=== PATIENT | female | born 1930 | race Caucasian/White ===

== ENCOUNTER 2016-08-31 16:54 | Observation (INO) | payer MEDICARE, OTHER ==
[2016-08-31] MEDS ORDERED: Sodium Chloride 0.9% 1,000 ML IV ONE (17:08)
[2016-08-31] MEDS ORDERED: Sodium Chloride 0.9% 10 ML Syringe FLUSH PRN (17:08)
--- NOTE | 2016-08-31 18:12 | EDM.PDOC ---
ED HPI GENERAL MEDICAL PROBLEM - General Chief Complaint: Respiratory Problem Stated Complaint: SENT BY DR SHARMA Time Seen by Provider: 08/31/16 17:07 Source of Information: Reports: Patient History Limitations: Reports: No Limitations - History of Present Illness INITIAL COMMENTS - FREE TEXT/NARRATIVE: The patient is an 86-year-old female with a history of coronary artery disease and hypertension who presents for chest pain from clinic. Patient states that she started getting chest pain about 3 weeks ago. She's been getting occasional episodes, always while at rest. When she has an episode, the pain is substernal , sharp, it seems to come from her back and radiated around to the front of her chest and also radiates to the left arm. She states there are no provoking factors. The pain lasts minutes and then resolves. She's had multiple episodes of this chest pain, not daily, not able to say how often she's been getting it. She's also been feeling short of breath. Shortness of breath is worse with activity. No cough. No fever or recent illness. Denies lower extremity pain but states that she's had some intermittent swelling in the left lower extremity is usually worse towards the end of the day and then better in the morning. No abdominal pain, nausea, or vomiting. She was seen in clinic by Dr. Sharma. He did an EKG, chest x-ray and blood work and she was found to have an elevated d- dimer so was sent here for imaging. However her creatinine at clinic was mildly elevated at 1.46. Patient states she has no chest pain at this time. Treatments PSYCHOLOGIST PERSONNEL: Reports: Other (see below) Other Treatments PSYCHOLOGIST PERSONNEL: labs, xray chest area Pain Score (Numeric/FACES): 8 - Related Data Allergies Allergy/AdvReac Type Severity Reaction Status Date / Time contrast dye Allergy Cough Uncoded 08/31/16 17:11 Home Meds: Home Meds Aspirin 81 mg PO DAILY 08/31/16 [History] Gabapentin [Neurontin] 0 mg PO DAILY 08/31/16 [History] Latanoprost [Latanoprost] 1 dose EYEBOTH DAILY 08/31/16 [History] Metoprolol Succinate 50 mg PO DAILY 08/31/16 [History] Mirabegron [Myrbetriq] 1 tab PO DAILY 08/31/16 [History] Multivitamin [Poly-Vitamin] 1 each PO DAILY 08/31/16 [History] Omeprazole [Omeprazole] 1 tab PO DAILY 08/31/16 [History] Valsartan 320 mg PO DAILY 08/31/16 [History] atorvaSTATin Calcium [Atorvastatin Calcium] 10 mg PO DAILY 08/31/16 [History] Past Medical History HEENT History: Reports: Cataract, Glaucoma, Impaired Vision Cardiovascular History: Reports: High Cholesterol, Hypertension, [place], Other (See Below) Other Cardiovascular History: cardiolyte stress test scheduled for 09/04/16 Gastrointestinal History: Reports: GERD, Other (See Below) Genitourinary History: Reports: Renal Disease Musculoskeletal History: Reports: Arthritis, Back Pain, Chronic, Fibromyalgia Psychiatric History: Reports: Anxiety Other Dermatologic History: dry skin - Past Surgical History HEENT Surgical History: Reports: Cataract Surgery Social & Family History - Family History Family Medical History: Noncontributory - Tobacco Use Smoking Status *Q: Never Smoker Second Hand Smoke Exposure: No - Caffeine Use Caffeine Use: Reports: Coffee - Recreational Drug Use Recreational Drug Use: No ED ROS GENERAL - Review of Systems Review Of Systems: See Below Constitutional: Denies: Fever HEENT: Reports: No Symptoms Respiratory: Reports: Shortness of Breath Cardiovascular: Reports: Chest Pain Endocrine: Reports: No Symptoms GI/Abdominal: Denies: Abdominal Pain : Reports: No Symptoms Musculoskeletal: Reports: Arm Pain Skin: Reports: No Symptoms Neurological: Reports: No Symptoms ED EXAM, GENERAL - Physical Exam Exam: See Below Exam Limited By: No Limitations General Appearance: Alert, WD/WN, No Apparent Distress Eye Exam: Bilateral Eye: Normal Inspection Ears: Normal External Exam Nose: Normal Inspection Throat/Mouth: Normal Inspection, Normal Oropharynx, No Airway Compromise Head: Atraumatic, Normocephalic Neck: Normal Inspection, Supple, Non-Tender, Full Range of Motion Respiratory/Chest: No Respiratory Distress, Lungs Clear, Normal Breath Sounds, No Accessory Muscle Use, Other (Mild diffuse left chest wall tenderness, no crepitus, skin normal) Cardiovascular: Normal Peripheral Pulses, Regular Rate, Rhythm, No Murmur GI/Abdominal: Soft, Non-Tender, No Distention. No: Rebound Back Exam: Normal Inspection Neurological: Alert, Oriented, Normal Cognition, No Motor/Sensory Deficits Psychiatric: Normal Affect, Normal Mood Skin Exam: Warm, Dry, Intact, Normal Color, No Rash Course - Vital Signs Last Recorded V/S: Last Vital Signs Temp 36.7 C 08/31/16 17:04 Pulse 97 08/31/16 17:04 Resp 20 08/31/16 17:04 BP 146/67 H 08/31/16 17:04 Pulse Ox 93 L 08/31/16 17:04 - Orders/Labs/Meds Orders: Active Orders 24 hr Category Date Time Status EKG 12 Lead [EKG Documentation Completion] [RC] STAT Care 08/31/16 18:11 Active Peripheral IV Care [RC] . DIRECTED Care 08/31/16 17:08 Active Chest 1V Frontal [CR] Stat Exams 08/31/16 18:11 Ordered TROPONIN I [CHEM] Stat Lab 08/31/16 17:25 Received Sodium Chloride 0.9% [Saline Flush] Med 08/31/16 17:08 Active 10 ml FLUSH ASDIRECTED PRN Peripheral IV Insertion Adult [OM.PC] Routine Oth 08/31/16 17:08 Ordered Medication Orders Sodium Chloride (Saline Flush) 10 ml FLUSH ASDIRECTED PRN PRN Reason: Keep Vein Open Last Admin: 08/31/16 17:26 Dose: 10 ml Labs: Laboratory Tests 08/31/16 08/31/16 Range/Units 17:25 17:25 WBC 9.50 (3.98-10.04) K/mm3 RBC 3.90 L (3.98-5.22) M/mm3 Hgb 12.1 (11.2-15.7) gm/L Hct 37.7 (34.1-44.9) % MCV 96.7 H (79.4-94.8) fl MCH 31.0 (25.6-32.2) pg MCHC 32.1 L (32.2-35.5) g/dl RDW Std Deviation 45.0 (36.4-46.3) fL Plt Count 263 (182-369) K/mm3 MPV 10.3 (9.4-12.3) fl Neut % (Auto) 59.3 (34.0-71.1) % Lymph % (Auto) 30.9 (19.3-51.7) % Ward % (Auto) 7.7 (4.7-12.5) % Eos % (Auto) 1.5 (0.7-5.8) Baso % (Auto) 0.3 (0.1-1.2) % Neut # (Auto) 5.63 (1.56-6.13) K/mm3 Lymph # (Auto) 2.94 (1.18-3.74) K/mm3 Ward # (Auto) 0.73 H (0.24-0.36) K/mm3 Eos # (Auto) 0.14 (0.04-0.36) K/mm3 Baso # (Auto) 0.03 (0.01-0.08) K/mm3 Sodium 140 (136-145) mEq/L Potassium 4.1 (3.5-5.1) mEq/L Chloride 104 (98-107) mEq/L Carbon Dioxide 26 (21-32) mEq/L Anion Gap 14.1 (5-15) BUN 19 H (7-18) mg/dL Creatinine 1.5 H (0.55-1.02) mg/dL Est Cr Clr Drug Dosing 19.34 mL/min Estimated GFR (MDRD) 33 (>60) mL/min BUN/Creatinine Ratio 12.7 L (14-18) Glucose 102 (83-115) mg/dL Calcium 10.0 (8.5-10.1) mg/dL Total Bilirubin 0.4 (0.2-1.0) mg/dL AST 17 (15-37) U/L ALT 22 (14-59) U/L Alkaline Phosphatase 78 (46-116) U/L Total Protein 7.6 (6.4-8.2) g/dl Albumin 3.7 (3.4-5.0) g/dl Globulin 3.9 gm/dL Albumin/Globulin Ratio 1.0 (1-2) Meds: Medications Generic Name Dose Route Start Last Admin Trade Name Freq PRN Reason Stop Dose Admin Sodium Chloride 10 ml 08/31/16 17:08 08/31/16 17:26 Saline Flush FLUSH 10 ml ASDIRECTED PRN Administration Keep Vein Open Discontinued Medications Generic Name Dose Route Start Last Admin Trade Name Freq PRN Reason Stop Dose Admin Sodium Chloride 1,000 mls @ 1,000 mls/hr 08/31/16 17:08 08/31/16 17:26 Normal Saline IV 08/31/16 18:07 1,000 mls/hr ONETIME ONE Administration - Re-Assessments/Exams Free Text/Narrative Re-Assessment/Exam: 08/31/16 18:23 Creatinine here is 1.5. We do have a 1 L normal saline bolus in progress. Anticipate admission for serial cardiac enzymes, fluids, repeat creatinine, and CT versus VQ scan to rule out PE. EKG shows normal sinus rhythm, inferior Q waves, T-wave inversions in leads 3 and aVF, no ST elevation. No prior available for comparison. 08/31/16 18:[address] Peng who agrees to admit to obs for monitoring and further workup. Departure - Departure Time of Disposition: 18:25 Disposition: Refer to Observation Clinical Impression: Shortness of breath Chest pain Qualifiers: Chest pain type: unspecified Qualified Code(s): R07.9 - Chest pain, unspecified - Discharge Information Referrals: Andres Sharma MD [Primary Care Provider] - Forms: ED Department Discharge - My Orders Last 24 Hours: My Active Orders 08/31/16 17:08 Peripheral IV Care [RC] . DIRECTED Sodium Chloride 0.9% [Saline Flush] 10 ml FLUSH ASDIRECTED PRN Peripheral IV Insertion Adult [OM.PC] Routine 08/31/16 17:25 TROPONIN I [CHEM] Stat 08/31/16 18:11 EKG 12 Lead [EKG Documentation Completion] [RC] STAT Chest 1V Frontal [CR] Stat - Assessment/Plan Last 24 Hours: My Active Orders 08/31/16 17:08 Peripheral IV Care [RC] . DIRECTED Sodium Chloride 0.9% [Saline Flush] 10 ml FLUSH ASDIRECTED PRN Peripheral IV Insertion Adult [OM.PC] Routine 08/31/16 17:25 TROPONIN I [CHEM] Stat 08/31/16 18:11 EKG 12 Lead [EKG Documentation Completion] [RC] STAT Chest 1V Frontal [CR] Stat
[2016-08-31] MEDS ORDERED: hydrALAZINE 20 MG/ML SDV IVPUSH PRN (18:37)
[2016-08-31] MEDS ORDERED: Metoprolol Tartrate 5 MG/5 ML SDV IVPUSH PRN (18:37)
--- NOTE | 2016-08-31 18:37 | PCM.HP ---
H&P History of Present Illness - General Date of Service: 08/31/16 Admit Problem/Dx: Chest Pain and Elevated D-Dimer Source of Information: Patient, Old Records, Provider, RN Notes Reviewed History Limitations: Reports: No Limitations, Language Barrier - History of Present Illness Initial Comments - Free Text/Narative: This is a 86-year-old elderly white female with past medical history of hypertension, hyperlipidemia, history of WI, GERD, chronic kidney disease, chronic back pain, osteoarthritis, fibromyalgia, anxiety, history of renal cysts , history of hiatal hernia, and umbilical hernia who was initially seen her primary care provider's office with chest pain and was sent over to the emergency department for further evaluation. Patient reports chest pain that has been going on intermittently for about 3 weeks now. She describes her pain as pressure-like in nature that improves with aspirin and after she wraps herself up with a warm blanket. She reports no aggravating or inciting factors. Initially, her pain started at her back then proceeded to her ribs and then went into her right arm and finally into her anterior mid-sternal chest. Her pain lasted all night according to her. Patient has a history of GERD but she denies heart like in presentation. Patient carries a history of WI in the past with similar presentation. Her initial workup at her primary care office reveals an elevated d-dimer of 1.3. Her reported chest x-ray shows no acute abnormal findings. However no available images for review. Her EKG shows normal sinus rhythm with Q wave in anterior leads but no ST elevation. Her additional workup in emergency department shows a fairly unremarkable CBC. Her chemistry is remarkable for BUN of 19, and creatinine of 1.5. Troponin 1 so far is negative. The patient received initial treatment in the emergency department before she was sent to the floor for further management. She is CPR only. chest area Pain Score (Numeric/FACES): 8 left/back neck Pain Score (Numeric/FACES): 3 - Related Data Allergies/Adverse Reactions: Allergies Allergy/AdvReac Type Severity Reaction Status Date / Time contrast dye Allergy Cough Uncoded 08/31/16 17:11 Home Medications: Home Meds Aspirin 81 mg PO DAILY 08/31/16 [History] Gabapentin [Neurontin] 200 mg PO TID PRN 08/31/16 [History] Latanoprost [Latanoprost] 1 dose EYEBOTH DAILY 08/31/16 [History] Metoprolol Succinate 50 mg PO DAILY 08/31/16 [History] Mirabegron [Myrbetriq] 1 tab PO DAILY 08/31/16 [History] Multivitamin [Poly-Vitamin] 1 each PO DAILY 08/31/16 [History] Omeprazole [Omeprazole] 1 tab PO DAILY 08/31/16 [History] Valsartan 320 mg PO DAILY 08/31/16 [History] atorvaSTATin Calcium [Atorvastatin Calcium] 10 mg PO DAILY 08/31/16 [History] Hydrochlorothiazide 12.5 mg PO DAILY 09/01/16 [History] Sertraline [Zoloft] 50 mg PO DAILY 09/01/16 [History] Past Medical History HEENT History: Reports: Cataract, Glaucoma, Impaired Vision Cardiovascular History: Reports: High Cholesterol, Hypertension, [place], Other (See Below) Other Cardiovascular History: cardiolyte stress test scheduled for 09/04/16 Gastrointestinal History: Reports: GERD, Other (See Below) Genitourinary History: Reports: Renal Disease Musculoskeletal History: Reports: Arthritis, Back Pain, Chronic, Fibromyalgia Psychiatric History: Reports: Anxiety Other Dermatologic History: dry skin - Past Surgical History HEENT Surgical History: Reports: Cataract Surgery Social & Family History - Family History Family Medical History: Noncontributory - Tobacco Use Smoking Status *Q: Never Smoker Second Hand Smoke Exposure: No - Caffeine Use Caffeine Use: Reports: Coffee - Recreational Drug Use Recreational Drug Use: No H&P Review of Systems - Review of Systems: Review Of Systems: See Below General: Reports: Weakness. Denies: Fever, Chills, Malaise, Fatigue HEENT: Reports: No Symptoms Pulmonary: Reports: Shortness of Breath Cardiovascular: Reports: Chest Pain (pressure like). Denies: Dyspnea on Exertion, Edema, Lightheadedness, Syncope, Claudication, Blood Pressure Problem Gastrointestinal: Denies: Abdominal Pain, Nausea, Vomiting Genitourinary: Reports: No Symptoms Musculoskeletal: Reports: No Symptoms Skin: Denies: Cyanosis, Erythema Psychiatric: Denies: Depression, Anxiety, Hallucinations Neurological: Reports: Pre-Existing Deficit, Difficulty Walking, Gait Disturbance. Denies: Confusion, Weakness Hematologic/Lymphatic: Reports: No Symptoms Immunologic: Reports: No Symptoms Exam - Exam Exam: See Below - Vital Signs Vital Signs: Last Vital Signs Temp 36.7 C 08/31/16 17:04 Pulse 97 08/31/16 17:04 Resp 20 08/31/16 17:04 BP 146/67 H 08/31/16 17:04 Pulse Ox 93 L 08/31/16 17:04 Weight: 97.976 kg - Exam Quality Assessment: No: Supplemental Oxygen General: Alert, Oriented, Cooperative. No: Mild Distress HEENT: Conjunctiva Clear, EACs Clear, EOMI, Hearing Intact, Mucosa Moist & Mcl[place] , Nares Patent, Normal Nasal Septum, Posterior Pharynx Clear, Pupils Equal, Pupils Reactive, TMs Clear Neck: Supple, Trachea Midline, Full Range of Motion Lungs: Normal Respiratory Effort, Decreased Breath Sounds Cardiovascular: Regular Rate, Regular Rhythm, Other (chest wall tenderness on palpation) Abdomen: Normal Bowel Sounds, Soft. No: Organomegaly, Tenderness (Female) Exam: Deferred Rectal (Female) Exam: Deferred Back Exam: Normal Inspection, Decreased Range of Motion Extremities: Normal Inspection, Normal Pulses, Calf Tenderness (left leg). No: Clubbing, Cyanosis, Edema, Increased Warmth Peripheral Pulses: 2+: Posterior Tibial (L), Posterior Tibial (R), Dorsalis Pedis (L), Dorsalis Pedis (R) Skin: Warm, Dry, Intact Neuro Extensive - Mental Status: Oriented x3, Normal Cognition, Memory Intact Neuro Extensive - Motor, Sensory, Reflexes: CN II-XII Intact (fairly intact), Abnormal Gait Psychiatric: Alert, Normal Affect, Normal Mood - Patient Data Lab Results Last 24 hrs: Laboratory Results - last 24 hr 08/31/16 08/31/16 Range/Units 17:25 17:25 WBC 9.50 (3.98-10.04) K/mm3 RBC 3.90 L (3.98-5.22) M/mm3 Hgb 12.1 (11.2-15.7) gm/L Hct 37.7 (34.1-44.9) % MCV 96.7 H (79.4-94.8) fl MCH 31.0 (25.6-32.2) pg MCHC 32.1 L (32.2-35.5) g/dl RDW Std Deviation 45.0 (36.4-46.3) fL Plt Count 263 (182-369) K/mm3 MPV 10.3 (9.4-12.3) fl Neut % (Auto) 59.3 (34.0-71.1) % Lymph % (Auto) 30.9 (19.3-51.7) % Stark % (Auto) 7.7 (4.7-12.5) % Eos % (Auto) 1.5 (0.7-5.8) Baso % (Auto) 0.3 (0.1-1.2) % Neut # (Auto) 5.63 (1.56-6.13) K/mm3 Lymph # (Auto) 2.94 (1.18-3.74) K/mm3 Stark # (Auto) 0.73 H (0.24-0.36) K/mm3 Eos # (Auto) 0.14 (0.04-0.36) K/mm3 Baso # (Auto) 0.03 (0.01-0.08) K/mm3 Sodium 140 (136-145) mEq/L Potassium 4.1 (3.5-5.1) mEq/L Chloride 104 (98-107) mEq/L Carbon Dioxide 26 (21-32) mEq/L Anion Gap 14.1 (5-15) BUN 19 H (7-18) mg/dL Creatinine 1.5 H (0.55-1.02) mg/dL Est Cr Clr Drug Dosing 19.34 mL/min Estimated GFR (MDRD) 33 (>60) mL/min BUN/Creatinine Ratio 12.7 L (14-18) Glucose 102 (83-115) mg/dL Calcium 10.0 (8.5-10.1) mg/dL Total Bilirubin 0.4 (0.2-1.0) mg/dL AST 17 (15-37) U/L ALT 22 (14-59) U/L Alkaline Phosphatase 78 (46-116) U/L Total Protein 7.6 (6.4-8.2) g/dl Albumin 3.7 (3.4-5.0) g/dl Globulin 3.9 gm/dL Albumin/Globulin Ratio 1.0 (1-2) Result Diagrams: 09/01/16 05:33 09/01/16 05:33 EKG INTERPRETATION EKG Date: 08/31/16 Rhythm: NSR Comparison: NA - No Prior EKG EKG Interpretation Comments: Q wave in inferior leads, T wave inversion in III and avF *Q Meaningful Use (ADM) - VTE *Q VTE Criteria *Q: - Stroke *Q Stroke Criteria *Q: - AMI *Q AMI Criteria *Q: Problem List Initiated/Reviewed/Updated: Yes Orders Last 24hrs: Active Orders 24 hr Category Date Time Status EKG 12 Lead [EKG Documentation Completion] [RC] STAT Care 08/31/16 18:11 Active Peripheral IV Care [RC] . DIRECTED Care 08/31/16 17:08 Active Chest 1V Frontal [CR] Stat Exams 08/31/16 18:11 Ordered TROPONIN I [CHEM] Stat Lab 08/31/16 17:25 Received Sodium Chloride 0.9% [Saline Flush] Med 08/31/16 17:08 Active 10 ml FLUSH ASDIRECTED PRN Peripheral IV Insertion Adult [OM.PC] Routine Oth 08/31/16 17:08 Ordered Medication Orders Sodium Chloride (Saline Flush) 10 ml FLUSH ASDIRECTED PRN PRN Reason: Keep Vein Open Last Admin: 08/31/16 17:26 Dose: 10 ml Assessment/Plan Comment:: Assessment/Plan: Acute: Chest Pain R/o ACS - Had hx/o WI with similar presentation in the past - HEART Score is 4+. Moderate Score (4-6 points), risk of MACE of 12-16.7%: Predicts 6-week risk of major adverse cardiac event - Chest pain was pressure like in nature but not similar to GERD - No Hx/o Premature CAD in family - Risk factors: Obesity with BMI 38, HTN, HLD and hx/o WI - Non-smoker - CP protocol: Serial Troponin Q6 x2, ekg x 1 in am and Lipid panel in am - ASA, Statin, Nitro, Morphine, and BB - Cardiac stress test- scheduled for 09/04/2016 Elevated D-Dimer - 1.30 - Wells Score is 1 (moderate probability) - B/L Lower Ext U/S r/o DVT - V/Q scan in AM - Repeat level in AM - CTA is contra-indicated due to allergic reaction to contrast dye in the past Chronic: HTN HLD OAB GERD Peripheral Neuropathy Glaucoma Back Pain Fibromyalgia Stage 3 CKD/Renal Insufficiency (No baseline renal panel) Diffuse Aortic Atherosclerotic Calcification 04/19/15 (Abdominal CT scan) DJD/OA Large Cyst on superior left kidney and smaller cyst on inferior left kidney 04/19 (Abdominal CT scan) Hx/o Hiatal Hernia 04/19/15 (Abdominal CT scan) Hx/o Small Fat Containing Umbilical Hernia 04/19/15 (Abdominal CT scan) Plan: Admit to the floor w/ Telemetry Routine AM Labs Resume Home Meds B/L Duplex U/S to r/o DVT V/Q scan in AM, CTA contraindicated 2/ contrast dye allergy PT/OT consult DVT PPx: Heparin SubQ TID SW/CM for d/c planning Code Status:CPR only Called and spoke to Dr. Sharma, informing him that CTA is contraindicated due to hx/o allergic reaction
[2016-08-31] MEDS ORDERED: LORazepam 2 MG/ML MDV IV PRN (18:39)
[2016-08-31] MEDS ORDERED: Albuterol/Ipratropium 3.0-0.5 MG/3 ML Neb Soln NEB PRN (18:39)
[2016-08-31] MEDS ORDERED: Promethazine 12.5 MG in Sodium Chloride 0.9% 50 ML IV PRN (18:39)
[2016-08-31] MEDS ORDERED: Acetaminophen/HYDROcodone 325-5 MG Tab PO PRN (18:39)
[2016-08-31] MEDS ORDERED: Ondansetron 4 MG/2 ML SDV IV PRN (18:39)
[2016-08-31] MEDS ORDERED: Polyethylene Glycol 3350 Powder 17 GM Packet PO PRN (18:39)
[2016-08-31] MEDS ORDERED: Temazepam 7.5 MG Cap PO PRN (18:39)
[2016-08-31] MEDS ORDERED: Docusate Sodium 100 MG Cap PO PRN (18:39)
[2016-08-31] MEDS ORDERED: HYDROmorphone 0.5 MG/0.5 ML Syringe IVPUSH PRN (18:39)
[2016-08-31] MEDS ORDERED: Bisacodyl 5 MG Tab PO PRN (18:39)
[2016-08-31] MEDS ORDERED: Acetaminophen 325 MG Tab PO PRN (18:39)
[2016-08-31] MEDS ORDERED: Morphine 2 MG/ML Syringe IVPUSH PRN (22:29)
[2016-09-01] MEDS: Heparin Sodium 5,000 Units/ML Vial SUBCUT SCH ×2 (00:57→06:33)
[2016-09-01 02:57] VITALS: BP 119/95
[2016-09-01] MEDS ORDERED: Pantoprazole 40 MG Tab.CR PO SCH (06:00)
--- NOTE | 2016-09-01 08:25 | US ---
Bilateral lower extremity deep venous ultrasound: Duplex and color flow imaging was obtained of the right and left common femoral, proximal greater saphenous, superficial femoral, popliteal, posterior tibial and peroneal veins. Comparison: No previous venous exam. Normal phasic flow, augmentation and compression are seen. 5.5 cm popliteal cyst is noted on left side. Minimal soft tissue edema is identified within the right lower extremity. Right groin lymph node seen measuring 3.3 cm which is likely incidental. Impression: 1. No findings of deep venous thrombosis within either the right or left lower extremity. 2. Popliteal cyst on the left side. Other incidental findings. Diagnostic code #2 I agree with preliminary report issued by [facility] ([facility] preliminary report dictated on 09/01/16, 12:13 AM Central Time)
[2016-09-01] MEDS ORDERED: Aspirin 81 MG Tab.EC PO SCH (09:00)
[2016-09-01] MEDS ORDERED: Losartan 100 MG Tab PO SCH (09:00)
[2016-09-01] MEDS ORDERED: Multivitamins,Therapeutic Tab PO SCH (09:00)
[2016-09-01] MEDS ORDERED: Losartan 25 MG Tab PO SCH (09:00)
[2016-09-01] MEDS ORDERED: Simvastatin 10 MG Tab PO SCH (09:00)
[2016-09-01] MEDS ORDERED: Gabapentin 300 MG Cap PO SCH (09:00)
[2016-09-01] MEDS ORDERED: Metoprolol Succinate 50 MG Tab.ER PO SCH (09:00)
[2016-09-01] MEDS ORDERED: Mirabegron [Myrbetriq] 50 MG PO SCH (09:00)
[2016-09-01] MEDS ORDERED: Latanoprost 0.005% Ophth Soln 2.5 ML Bottle EYEBOTH SCH (09:00)
--- NOTE | 2016-09-01 10:54 | NM ---
Ventilation/perfusion lung scan Technique: 2.0 mCi of technetium 99m MAA was given intravenously. Scintigraphic imaging then obtained over the chest. 40 mCi of technetium 99m DTPA was aerosolized and patient inhaled the mixture. Continued scintigraphic imaging was performed. Findings: Mild areas of matched defects are seen within both lungs more prominent on the right side. No mismatch defect is seen. Impression: 1. Findings felt to have a low probability for pulmonary embolism. Diagnostic code #3
[2016-09-01] MEDS ORDERED: OMEPRAZOLE 40 MG CAPSULE PO SCH (11:30)
[2016-09-01] MEDS ORDERED: METOPROLOL SUCCINATE 50 MG PO SCH (11:30)
[2016-09-01] MEDS ORDERED: ATORVASTATIN 10 MG PO SCH (11:30)
[2016-09-01] MEDS ORDERED: VALSARTAN 320 MG PO SCH (11:30)
[2016-09-01] MEDS ORDERED: GABAPENTIN 100 MG CAPSULE PO SCH (11:30)
--- NOTE | 2016-09-01 13:03 | PCM.DCSUM1 ---
Discharge Summary - Hospital Course Brief History: This is a 86-year-old elderly white female with past medical history of hypertension, hyperlipidemia, history of VT, GERD, chronic kidney disease, chronic back pain, osteoarthritis, fibromyalgia, anxiety, history of renal cysts, history of hiatal hernia, and umbilical hernia who was initially seen her primary care provider's office with chest pain and was sent over to the emergency department for further evaluation. She was admitted for further evaluation. - Discharge Data Discharge Date: 09/01/16 Discharge Disposition: Home, Self-Care 01 Condition: Good - Discharge Diagnosis/Problem(s) (1) Chest pain SNOMED Code(s): 17786245 ICD Code: R07.9 - CHEST PAIN, UNSPECIFIED Status: Acute Qualifiers: Chest pain type: unspecified Qualified Code(s): R07.9 - Chest pain, unspecified (2) Shortness of breath SNOMED Code(s): 366752192 ICD Code: R06.02 - SHORTNESS OF BREATH Status: Acute (3) Elevated d-dimer SNOMED Code(s): 975113579 ICD Code: R79.89 - OTHER SPECIFIED ABNORMAL FINDINGS OF BLOOD CHEMISTRY Status: Acute - Patient Summary/Data Operative Procedure(s) Performed: None Complications: None Consults: None Hospital Course: Patient was primarily admitted for chest pain rule out ACS. She carried a history of VT and she felt this was similar in presentation. Her basic cardiac workup was unremarkable to include serial cardiac enzymes and EKGs. However she had a one-time episode of chest pressure last night that started from her back and went up to her chest, lasted about 5 minutes and after that went away on its own. As for her elevated D-dimer. Patient was ruled out for blood clot. Her duplex bilateral lower extremity ultrasound showed negative for DVT and her V/Q scan showed low probability of PE. Patient was unable to take CTA due to history of allergic reaction to contrast dye. However we proceeded to obtain CT scan without contrast and it showed no abnormalities noted except for coronary atherosclerosis. We still felt that her chest pressure comes from angina given her history of atherosclerosis disease. Therefore she was provided with sublingual nitroglycerin to take as needed for each onset of symptom. She was advised to call her primary care doctor or to come to the nearest emergency department if her symptom lingers or without resolution after taking sublingual nitroglycerin as directed. She was further advised to keep her stress test as scheduled next week. We recommend that she follows a weeder thinner after discharge. Her hospital course was otherwise uncomplicated. The rest of her chronic medical illness remained stable during his admission. She is now ready for discharge. She is completely asymptomatic. Her primary care provider was called and updated on discharge care plans. - Patient Instructions Diet: Usual Diet as Tolerated Activity: As Tolerated Driving: Do Not Drive Showering/Bathing: May Shower Notify Provider of: Increased Pain, Nausea and/or Vomiting Other/Special Instructions: - Please resume all home medications. - Call your doctor for any questions or concerns. - Keep your stress test scheduled for next week. - If no improvement wiht you symptom, we recommend you see a heart doctor - Discharge Plan Prescriptions/Med Rec: Nitroglycerin 0.4 mg SL ASDIRECTED PRN #12 tab.subl PRN Reason: Chest Pain Home Medications: Home Meds Aspirin 81 mg PO DAILY 08/31/16 [History] Gabapentin [Neurontin] 200 mg PO TID PRN 08/31/16 [History] Latanoprost 1 dose EYEBOTH DAILY 08/31/16 [History] Metoprolol Succinate 50 mg PO DAILY 08/31/16 [History] Mirabegron [Myrbetriq] 1 tab PO DAILY 08/31/16 [History] Multivitamin [Poly-Vitamin] 1 each PO DAILY 08/31/16 [History] Omeprazole 1 tab PO DAILY 08/31/16 [History] Valsartan 320 mg PO DAILY 08/31/16 [History] atorvaSTATin Calcium [Atorvastatin Calcium] 10 mg PO DAILY 08/31/16 [History] Hydrochlorothiazide 12.5 mg PO DAILY 09/01/16 [History] Nitroglycerin 0.4 mg SL ASDIRECTED PRN #12 tab.subl 09/01/16 [Rx] Sertraline [Zoloft] 50 mg PO DAILY 09/01/16 [History] Patient Handouts: Nonspecific Chest Pain, [id number] Referrals: Andres Sharma MD [Primary Care Provider] - (Please see Dr. Sharma on Sunday at 4: 15 PM on September 08, 2016 as already scheduled. ) - Discharge Summary/Plan Comment DC Time >30 min.: No Discharge Summary/Plan Comment: Discharge to Home - General Info Date of Service: 09/01/16 Admission Dx/Problem (Free Text: Chest Pain and Elevated D-Dimer Subjective Update: Follow Up Functional Status: Reports: pain controlled, tolerating diet, ambulating, urinating. Denies: new symptoms - Review of Systems General: Denies: Fever, Weakness, Fatigue, Malaise, Chills HEENT: Reports: no symptoms Pulmonary: Denies: shortness of breath, pleuritic chest pain Cardiovascular: Denies: Chest Pain, Palpitations, Dyspnea on Exertion, Orthopnea Gastrointestinal: Denies: Abdominal pain, Nausea, Vomiting Genitourinary: Reports: no symptoms Musculoskeletal: Reports: no symptoms Skin: Reports: no symptoms Neurological: Reports: Gait Disturbance. Denies: Confusion, Difficulty Walking , Weakness Psychiatric: Reports: no symptoms - Patient Data Vitals - Most Recent: Last Vital Signs Temp 36.9 C 09/01/16 03:13 Pulse 93 09/01/16 03:13 Resp 16 09/01/16 03:13 BP 119/95 H 09/01/16 03:13 Pulse Ox 90 L 09/01/16 03:13 Weight - Most Recent: 97.976 kg I&O - Last 24 hours: Intake & Output 08/31/16 09/01/16 09/01/16 22:59 06:59 14:59 Intake Total 100 90 Output Total 500 Balance -400 90 Lab Results - Last 24 hrs: Laboratory Results - last 24 hr 08/31/16 09/01/16 09/01/16 Range/Units 23:46 02:50 05:33 WBC 8.93 (3.98-10.04) K/mm3 RBC 3.86 L (3.98-5.22) M/mm3 Hgb 12.0 (11.2-15.7) gm/L Hct 37.5 (34.1-44.9) % MCV 97.2 H (79.4-94.8) fl MCH 31.1 (25.6-32.2) pg MCHC 32.0 L (32.2-35.5) g/dl RDW Std Deviation 45.1 (36.4-46.3) fL Plt Count 238 (182-369) K/mm3 MPV 10.4 (9.4-12.3) fl Neut % (Auto) 58.5 (34.0-71.1) % Lymph % (Auto) 31.2 (19.3-51.7) % [place] % (Auto) 7.3 (4.7-12.5) % Eos % (Auto) 2.5 (0.7-5.8) Baso % (Auto) 0.3 (0.1-1.2) % Neut # (Auto) 5.22 (1.56-6.13) K/mm3 Lymph # (Auto) 2.79 (1.18-3.74) K/mm3 [place] # (Auto) 0.65 H (0.24-0.36) K/mm3 Eos # (Auto) 0.22 (0.04-0.36) K/mm3 Baso # (Auto) 0.03 (0.01-0.08) K/mm3 D-Dimer, Quantitative (0.19-0.59) mg/L Sodium (136-145) mEq/L Potassium (3.5-5.1) mEq/L Chloride (98-107) mEq/L Carbon Dioxide (21-32) mEq/L Anion Gap (5-15) BUN (7-18) mg/dL Creatinine (0.55-1.02) mg/dL Est Cr Clr Drug Dosing mL/min Estimated GFR (MDRD) (>60) mL/min BUN/Creatinine Ratio (14-18) Glucose (83-115) mg/dL Calcium (8.5-10.1) mg/dL Magnesium (1.8-2.4) mg/dl CK-MB (CK-2) 0.5 (0-3.6) ng/ml Troponin I < 0.017 (0.00-0.056) ng/mL Triglycerides (<150) mg/dL Cholesterol (<200) mg/dL LDL Cholesterol Direct (<100) mg/dL HDL Cholesterol (40-59) mg/dL Urine Color Yellow (Yellow) Urine Appearance Clear (Clear) Urine pH 6.0 (5.0-8.0) Ur Specific [place] 1.020 (1.005-1.030) Urine Protein Negative (Negative) Urine Glucose (UA) Negative (Negative) Urine Ketones Negative (Negative) Urine Occult Blood Negative (Negative) Urine Nitrite Negative (Negative) Urine Bilirubin Negative (Negative) Urine Urobilinogen 0.2 (0.2-1.0) Ur Leukocyte Esterase Negative (Negative) Urine RBC Not seen (0-5) /hpf Urine WBC 0-5 (0-5) /hpf Ur Epithelial Cells 0-5 (0-5) /hpf Urine Bacteria Few (FEW) /hpf Urine Mucus Not seen (FEW) /hpf 09/01/16 09/01/16 Range/Units 05:33 05:33 WBC (3.98-10.04) K/mm3 RBC (3.98-5.22) M/mm3 Hgb (11.2-15.7) gm/L Hct (34.1-44.9) % MCV (79.4-94.8) fl MCH (25.6-32.2) pg MCHC (32.2-35.5) g/dl RDW Std Deviation (36.4-46.3) fL Plt Count (182-369) K/mm3 MPV (9.4-12.3) fl Neut % (Auto) (34.0-71.1) % Lymph % (Auto) (19.3-51.7) % [place] % (Auto) (4.7-12.5) % Eos % (Auto) (0.7-5.8) Baso % (Auto) (0.1-1.2) % Neut # (Auto) (1.56-6.13) K/mm3 Lymph # (Auto) (1.18-3.74) K/mm3 [place] # (Auto) (0.24-0.36) K/mm3 Eos # (Auto) (0.04-0.36) K/mm3 Baso # (Auto) (0.01-0.08) K/mm3 D-Dimer, Quantitative 1.31 H (0.19-0.59) mg/L Sodium 140 (136-145) mEq/L Potassium 4.1 (3.5-5.1) mEq/L Chloride 107 (98-107) mEq/L Carbon Dioxide 25 (21-32) mEq/L Anion Gap 12.1 (5-15) BUN 19 H (7-18) mg/dL Creatinine 1.4 H (0.55-1.02) mg/dL Est Cr Clr Drug Dosing 23.86 mL/min Estimated GFR (MDRD) 36 (>60) mL/min BUN/Creatinine Ratio 13.6 L (14-18) Glucose 144 H (83-115) mg/dL Calcium 9.5 (8.5-10.1) mg/dL Magnesium 2.0 (1.8-2.4) mg/dl CK-MB (CK-2) 0.6 (0-3.6) ng/ml Troponin I 0.027 (0.00-0.056) ng/mL Triglycerides 114 (<150) mg/dL Cholesterol 163 (<200) mg/dL LDL Cholesterol Direct 94 (<100) mg/dL HDL Cholesterol 50.0 (40-59) mg/dL Urine Color (Yellow) Urine Appearance (Clear) Urine pH (5.0-8.0) Ur Specific [place] (1.005-1.030) Urine Protein (Negative) Urine Glucose (UA) (Negative) Urine Ketones (Negative) Urine Occult Blood (Negative) Urine Nitrite (Negative) Urine Bilirubin (Negative) Urine Urobilinogen (0.2-1.0) Ur Leukocyte Esterase (Negative) Urine RBC (0-5) /hpf Urine WBC (0-5) /hpf Ur Epithelial Cells (0-5) /hpf Urine Bacteria (FEW) /hpf Urine Mucus (FEW) /hpf Med Orders - Current: Current Medications Acetaminophen (Tylenol) 650 mg PO Q4H PRN PRN Reason: Pain (Mild 1-3)/fever Hydrocodone Bitart/Acetaminophen ([place] 325-5 Mg) 1 tab PO Q4H PRN PRN Reason: Pain (moderate 4-6) Albuterol/Ipratropium (Duoneb 3.0-0.5 Mg/3 Ml) 3 ml NEB Q4H PRN PRN Reason: Shortness Of Breath/wheezing Aspirin (Halfprin) 81 mg PO DAILY [facility] Last Admin: 09/01/16 11:26 Dose: 81 mg Bisacodyl (Dulcolax) 5 mg PO DAILY PRN PRN Reason: Constipation Docusate Sodium (Colace) 100 mg PO BID PRN PRN Reason: Constipation Heparin Sodium (Porcine) (Heparin Sodium) 5,000 units SUBCUT Q8HR [facility] Last Admin: 09/01/16 06:33 Dose: 5,000 units Hydralazine HCl (Apresoline) 20 mg IVPUSH Q4H PRN PRN Reason: Hypertension Hydromorphone HCl (Dilaudid) 0.25 mg IVPUSH Q4H PRN PRN Reason: Pain (severe 7-10) Promethazine HCl 12.5 mg/ (Sodium Chloride) 50.5 mls @ 100 mls/hr IV Q6H PRN PRN Reason: Nausea/Vomiting Latanoprost (Xalatan 0.005% Ophth Soln) 0 ml EYEBOTH DAILY [facility] Last Admin: 09/01/16 11:27 Dose: Not Given Lorazepam (Ativan) 0.25 mg IV Q6H PRN PRN Reason: Anxiety Magnesium Sulfate (Pharmacy To Dose - Magnesium Replacement) 0 dose .XX ASDIRECTED PRN PRN Reason: rx to dose Metoprolol Tartrate (Lopressor) 5 mg IVPUSH Q4H PRN PRN Reason: Tachycardia Morphine Sulfate (Morphine) 0.5 mg IVPUSH Q4H PRN PRN Reason: Dyspnea Multivitamins (Thera) 1 each PO DAILY [facility] Last Admin: 09/01/16 11:26 Dose: 1 each Ondansetron HCl (Zofran) 4 mg IV Q6H PRN PRN Reason: Nausea/Vomiting Mirabegron [ (Myrbetriq] 50 Mg) 0 each PO DAILY [facility] Last Admin: 09/01/16 11:52 Dose: Not Given Omeprazole 40 Mg (Capsule) 0 each PO DAILY@0700 [facility] Last Admin: 09/01/16 11:30 Dose: 1 each Valsartan 320 Mg 0 each PO DAILY [facility] Last Admin: 09/01/16 11:30 Dose: 1 each Metoprolol Succinate (50 Mg Tab.Er) 0 each PO DAILY [facility] Last Admin: 09/01/16 11:29 Dose: 1 each Atorvastatin 10 Mg 0 each PO DAILY [facility] Last Admin: 09/01/16 11:27 Dose: 1 each Gabapentin 100 Mg (Capsule) 0 each PO DAILY [facility] Last Admin: 09/01/16 11:28 Dose: 1 each Polyethylene Glycol (Miralax) 17 gm PO DAILY PRN PRN Reason: Constipation Potassium Chloride (Pharmacy To Dose - Potassium Replacement) 0 dose .XX ASDIRECTED PRN PRN Reason: RX TO DOSE Senna/Docusate Sodium (Senna Plus) 1 tab PO BID PRN PRN Reason: Constipation Sodium Chloride (Saline Flush) 10 ml FLUSH ASDIRECTED PRN PRN Reason: Keep Vein Open Last Admin: 08/31/16 17:26 Dose: 10 ml Temazepam (Restoril) 7.5 mg PO BEDTIME PRN PRN Reason: Sleep Discontinued Medications Gabapentin (Neurontin) 300 mg PO DAILY [facility] Last Admin: 09/01/16 11:52 Dose: Not Given Sodium Chloride (Normal Saline) 1,000 mls @ 1,000 mls/hr IV ONETIME ONE Stop: 08/31/16 18:07 Last Admin: 08/31/16 17:26 Dose: 1,000 mls/hr Losartan Potassium (Cozaar) 100 mg PO DAILY [facility] Last Admin: 09/01/16 11:52 Dose: Not Given Losartan Potassium (Cozaar) 50 mg PO DAILY [facility] Last Admin: 09/01/16 11:52 Dose: Not Given Metoprolol Succinate (Toprol Xl) 50 mg PO DAILY [facility] Last Admin: 09/01/16 11:53 Dose: Not Given Pantoprazole Sodium (Protonix) 40 mg PO ACBREAKFAST [facility] Last Admin: 09/01/16 06:33 Dose: 40 mg Simvastatin (Zocor) 10 mg PO DAILY [facility] Last Admin: 09/01/16 11:53 Dose: Not Given - Exam General: Reports: alert, oriented, cooperative, no acute distress HEENT: Reports: Pupils equal, Pupils reactive, EOMI, Mucous membr. moist/pink Neck: Reports: supple, trachea midline Lungs: Reports: Clear to auscultation, Normal respiratory effort Cardiovascular: Reports: Regular Rate, Regular Rhythm Abdomen: Reports: bowel sounds present, soft, no tenderness, no distension (Female) Exam: Deferred Rectal (Female) Exam: Deferred Back Exam: Reports: Normal Inspection, Decreased Range of Motion Extremities: Reports: no edema, normal pulses, no tenderness/swelling, no clubbing, no cyanosis, no calf tenderness, calf tenderness Skin: Reports: warm, dry, intact Neurological: Reports: no new focal deficit Psy/Mental Status: Reports: alert, normal affect, normal mood *Q Meaningful Use (DIS) - VTE *Q VTE Criteria *Q: - Stroke *Q Stroke Criteria *Q: - AMI *Q AMI Criteria *Q:
--- NOTE | 2016-09-01 13:37 | CT ---
CT chest Technique: Multiple axial sections were obtained through the chest. Intravenous contrast was not utilized. Comparison: Previous chest x-ray of 08/31/16. Findings: Mediastinum and hilar regions show no adenopathy or mass. Large cyst is noted off the superior left kidney measuring 10.7 cm. Coronary artery calcification is seen. Atherosclerotic calcification is seen within the thoracic aorta and branch vessels. Lungs are clear. No pleural effusions are seen. No pneumothorax is seen. Bone window settings were reviewed which show scattered degenerative change within the spine. Impression: 1. Incidental findings as described above. Nothing acute is identified on noncontrast CT study of the chest. Diagnostic code #2
== END 2016-09-01 14:30 | disposition home or self-care (01) ==
LOC: JD.ED 16:54 → JD.MS 19:40
PROVIDERS: ADMIT Internal Medicine; ATTEND Internal Medicine
DX: R07.9 Chest pain, unspecified (principal); R06.02 Shortness of breath; R79.89 Other specified abnormal findings of blood chemistry; I12.9 Hypertensive chronic kidney disease with stage 1 through stage 4 chronic kidney disease, or unspecified chronic kidney disease; N18.3 Chronic kidney disease, stage 3 (moderate); E78.5 Hyperlipidemia, unspecified; K21.9 Gastro-esophageal reflux disease without esophagitis; G62.9 Polyneuropathy, unspecified; H40.9 Unspecified glaucoma; M54.9 Dorsalgia, unspecified; M79.7 Fibromyalgia; I70.0 Atherosclerosis of aorta; E78.00 Pure hypercholesterolemia, unspecified; I25.2 Old myocardial infarction; M19.90 Unspecified osteoarthritis, unspecified site; G89.29 Other chronic pain; F41.9 Anxiety disorder, unspecified; E66.9 Obesity, unspecified; Z79.82 Long term (current) use of aspirin; Z79.899 Other long term (current) drug therapy; Z98.890 Other specified postprocedural states; Z91.041 Radiographic dye allergy status; Z68.38 Body mass index [BMI] 38.0-38.9, adult
CPT/HCPCS: 36415; 71250; 78582; 80048; 80053; 80061; 81001; 82553; 83735; 84484; 85025; 85379; 87086; 93005; 93970; 96360; 97162; 97165; 99285; A9270; A9540; J1644; J7040; J7050; 96372; 99217; 99219; 99284; G0378

== ENCOUNTER 2017-02-10 08:40 | Emergency (ER) | payer MEDICARE, OTHER ==
[2017-02-10 08:55] VITALS: BP 167/94
--- NOTE | 2017-02-10 09:03 | EDM.PDOC ---
ED HPI GENERAL MEDICAL PROBLEM - General Chief Complaint: Gastrointestinal Problem Stated Complaint: CONSTIPATION/ABDOMINAL PAIN Time Seen by Provider: 02/10/17 09:03 - History of Present Illness INITIAL COMMENTS - FREE TEXT/NARRATIVE: 86-year-old female presents emergency room with abdominal bloating and constipation. This is been going on the last couple of days prior to this the patient had some nausea and vomiting over this last weekend she attributed to eating a bad bowl of soup she did not have any diarrhea with this and this resolved her diet has been normal for the last several days yesterday she noted she was getting more bloated and felt as though she could not defecate. She worked with this through the evening without much success. Patient denies any other symptoms at this time Rectal Pain Score (Numeric/FACES): 10 - Related Data Allergies Allergy/AdvReac Type Severity Reaction Status Date / Time contrast dye Allergy Cough Uncoded 02/10/17 08:51 Home Meds: Home Meds Aspirin 81 mg PO DAILY 08/31/16 [History] Gabapentin [Neurontin] 200 mg PO TID PRN 08/31/16 [History] Latanoprost 1 dose EYEBOTH DAILY 08/31/16 [History] Metoprolol Succinate 50 mg PO DAILY 08/31/16 [History] Mirabegron [Myrbetriq] 1 tab PO DAILY 08/31/16 [History] Multivitamin [Poly-Vitamin] 1 each PO DAILY 08/31/16 [History] Omeprazole 1 tab PO DAILY 08/31/16 [History] Valsartan 320 mg PO DAILY 08/31/16 [History] atorvaSTATin Calcium [Atorvastatin Calcium] 10 mg PO DAILY 08/31/16 [History] Hydrochlorothiazide 12.5 mg PO DAILY 09/01/16 [History] Nitroglycerin 0.4 mg SL ASDIRECTED PRN #12 tab.subl 09/01/16 [Rx] Sertraline [Zoloft] 50 mg PO DAILY 09/01/16 [History] Lactulose 20 gm PO Q24H #600 ml 02/10/17 [Rx] Past Medical History HEENT History: Reports: Cataract, Glaucoma, Impaired Vision Cardiovascular History: Reports: High Cholesterol, Hypertension, [place], Other (See Below) Other Cardiovascular History: cardiolyte stress test scheduled for 09/04/16 Gastrointestinal History: Reports: GERD, Other (See Below) Genitourinary History: Reports: Renal Disease SPRING TIER History: Reports: Musculoskeletal History: Reports: Arthritis, Back Pain, Chronic, Fibromyalgia Psychiatric History: Reports: Anxiety Endocrine/Metabolic History: Reports: Obesity/BMI 30+ Other Dermatologic History: dry skin - Past Surgical History HEENT Surgical History: Reports: Cataract Surgery Social & Family History - Family History Family Medical History: Noncontributory - Tobacco Use Smoking Status *Q: Never Smoker Second Hand Smoke Exposure: No - Caffeine Use Caffeine Use: Reports: Coffee Other Caffeine Use: 2 cups a day - Recreational Drug Use Recreational Drug Use: No ED ROS GENERAL - Review of Systems Review Of Systems: See Below Constitutional: Reports: No Symptoms Respiratory: Reports: No Symptoms Cardiovascular: Reports: No Symptoms GI/Abdominal: Reports: Constipation, Other (She has some bloating). Denies: Diarrhea ED EXAM, GI/ABD - Physical Exam Exam: See Below Exam Limited By: No Limitations General Appearance: Alert, No Apparent Distress Head: Atraumatic, Normocephalic Neck: Normal Inspection, Supple, Non-Tender, Full Range of Motion Respiratory/Chest: No Respiratory Distress, Lungs Clear, Normal Breath Sounds Cardiovascular: Regular Rate, Rhythm, No Murmur, Other (Trace edema) Rectal (Female) Exam: Heme - Stool, Other (She has an external hemorrhoid a firm large ball of stool is noted in the rectal vault. Stool color is brownish with a slight red discoloration Hemoccult is negative) Back Exam: Normal Inspection. No: CVA Tenderness (L), CVA Tenderness (R) Neurological: Alert, Oriented, Normal Cognition Course - Vital Signs Last Recorded V/S: Last Vital Signs Temp 36.8 C 02/10/17 08:51 Pulse 86 02/10/17 08:51 Resp 20 02/10/17 08:51 BP 167/94 H 02/10/17 08:51 Pulse Ox 96 02/10/17 08:51 - Orders/Labs/Meds Orders: Active Orders 24 hr Category Date Time Status Enema [RC] ASDIRECTED Care 02/10/17 11:29 Active Abdomen 2V AP Flat Upright [CR] Stat Exams 02/10/17 10:14 Taken Meds: Medications Discontinued Medications Generic Name Dose Route Start Last Admin Trade Name Freq PRN Reason Stop Dose Admin Lidocaine HCl 10 ml 02/10/17 11:49 12/09/17 13:33 Xylocaine 2% Jelly MUCMEM 02/10/17 11:50 10 ml ONETIME ONE Administration - Re-Assessments/Exams Free Text/Narrative Re-Assessment/Exam: 02/10/17 11:38 KUB and upright are not suggestive of bowel obstruction she has a fair amount of stool seen in the rectal area large accumulation in the right colon scattered throughout. 02/10/17 13:51 Patient was given a soapsuds enema she had a hard time keeping this in nursing was able to digitally remove a medium bolus of stool from the rectal vault the patient had some improvement after this bloating improved and her discomforts improved. At this point she wants to go home. We will start her on lactulose. Departure - Departure Time of Disposition: 13:53 Disposition: Home, Self-Care 01 Clinical Impression: Constipation - Discharge Information Prescriptions: Lactulose 20 gm PO Q24H #600 ml Referrals: Andres Sharma MD [Primary Care Provider] - Forms: ED Department Discharge Additional Instructions: Return to emergency room with any questions problems or worsening symptoms. Push plenty of fluids. You been started on lactulose this is to help with the constipation take 2 tablespoons daily. Follow-up with your regular doctor in 1 week if needed. - My Orders Last 24 Hours: My Active Orders 02/10/17 10:14 Abdomen 2V AP Flat Upright [CR] Stat 02/10/17 11:29 Enema [RC] ASDIRECTED - Assessment/Plan Last 24 Hours: My Active Orders 02/10/17 10:14 Abdomen 2V AP Flat Upright [CR] Stat 02/10/17 11:29 Enema [RC] ASDIRECTED
[2017-02-10] MEDS ORDERED: Lidocaine 2% Jelly 10 ML Urojet MUCMEM ONE (11:49)
--- NOTE | 2017-02-10 16:07 | CR ---
Abdomen: Supine and upright views of the abdomen and pelvis were obtained. Comparison: No prior abdominal x-ray, previous abdominal and pelvic CT exam of 04/19/15 is available. Scattered degenerative change is noted within the spine with mild scoliosis. Joint space narrowing is also noted within both hips. Bowel gas pattern is normal. No free air is identified. No soft tissue abnormality is appreciated. Impression: 1. Incidental findings. Nothing acute is identified on two-view abdominal x-ray. Diagnostic code #2
== END 2017-02-10 14:20 | disposition home or self-care (01) ==
LOC: JD.ED 08:40
DX: K59.00 Constipation, unspecified (principal); E78.00 Pure hypercholesterolemia, unspecified; I10 Essential (primary) hypertension; Z88.6 Allergy status to analgesic agent; Z88.8 Allergy status to other drugs, medicaments and biological substances
CPT/HCPCS: 74020; 74020-26; 99283; 99284

== ENCOUNTER 2017-06-24 16:59 | Emergency (ER) | payer MEDICARE, OTHER ==
[2017-06-24 17:17] VITALS: BP 137/81
--- NOTE | 2017-06-24 17:59 | EDM.PDOC ---
ED HPI GENERAL MEDICAL PROBLEM - General Chief Complaint: ENT Problem Stated Complaint: NOSE INJURY Time Seen by Provider: 06/24/17 17:45 Source of Information: Reports: Patient History Limitations: Reports: No Limitations - History of Present Illness INITIAL COMMENTS - FREE TEXT/NARRATIVE: Patient is a 87-year-old female presents to the ED complaining of epistaxis. Patient states she chronically has bleeding to the nares on a daily basis. Has been utilizing a product called bleeding ease prescribed by her ENT specialist. She is on aspirin. Denies any anticoagulants. She is being evaluated in the ED since one of the bleed ease products is stuck in her left nares. Home nurse attempted to remove it but was unable to see it. She has no further bleeding. Nose Pain Score (Numeric/FACES): 5 - Related Data Allergies Allergy/AdvReac Type Severity Reaction Status Date / Time contrast dye Allergy Cough Uncoded 02/10/17 08:51 Home Meds: Home Meds Aspirin 81 mg PO DAILY 08/31/16 [History] Gabapentin [Neurontin] 200 mg PO TID PRN 08/31/16 [History] Latanoprost 1 dose EYEBOTH DAILY 08/31/16 [History] Metoprolol Succinate 50 mg PO DAILY 08/31/16 [History] Mirabegron [Myrbetriq] 1 tab PO DAILY 08/31/16 [History] Multivitamin [Poly-Vitamin] 1 each PO DAILY 08/31/16 [History] Omeprazole 1 tab PO DAILY 08/31/16 [History] Valsartan 320 mg PO DAILY 08/31/16 [History] atorvaSTATin Calcium [Atorvastatin Calcium] 10 mg PO DAILY 08/31/16 [History] Hydrochlorothiazide 12.5 mg PO DAILY 09/01/16 [History] Nitroglycerin 0.4 mg SL ASDIRECTED PRN #12 tab.subl 09/01/16 [Rx] Sertraline [Zoloft] 50 mg PO DAILY 09/01/16 [History] Lactulose 20 gm PO Q24H #600 ml 02/10/17 [Rx] Past Medical History HEENT History: Reports: Cataract, Glaucoma, Impaired Vision Cardiovascular History: Reports: High Cholesterol, Hypertension, [place], Other (See Below) Other Cardiovascular History: cardiolyte stress test scheduled for 09/04/16 Gastrointestinal History: Reports: GERD, Other (See Below) Genitourinary History: Reports: Renal Disease 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: Musculoskeletal History: Reports: Arthritis, Back Pain, Chronic, Fibromyalgia Psychiatric History: Reports: Anxiety Endocrine/Metabolic History: Reports: Obesity/BMI 30+ Other Dermatologic History: dry skin - Past Surgical History HEENT Surgical History: Reports: Cataract Surgery Social & Family History - Family History Family Medical History: Noncontributory - Tobacco Use Smoking Status *Q: Never Smoker Second Hand Smoke Exposure: No - Caffeine Use Caffeine Use: Reports: Coffee Other Caffeine Use: 2 cups a day - Recreational Drug Use Recreational Drug Use: No ED ROS ENT - Review of Systems Review Of Systems: ROS reveals no pertinent complaints other than HPI. ED EXAM, ENT - Physical Exam Exam: See Below Exam Limited By: No Limitations General Appearance: Alert, WD/WN, No Apparent Distress Ears: Hearing Grossly Normal Nose: Normal Inspection, Normal Mucousa, No Blood, Other (Small cotton ball like product located to the nare. Removed with alligator forceps with no issues. It was fully intact. No additional bleeding noted. ). No: Active Bleeding, Dried Blood Mouth/Throat: Normal Oropharynx Neck: Normal Inspection, Supple Respiratory/Chest: No Respiratory Distress, No Accessory Muscle Use Neurological: Alert, Oriented, CN II-XII Intact, Normal Cognition, No Motor/ Sensory Deficits Psychiatric: Normal Affect, Normal Mood Skin: Warm, Dry, Intact Course - Vital Signs Last Recorded V/S: Last Vital Signs Temp 98.5 F 06/24/17 17:14 Pulse 96 06/24/17 17:14 Resp 20 06/24/17 17:14 BP 137/81 06/24/17 17:14 Pulse Ox 94 L 06/24/17 17:14 - Re-Assessments/Exams Free Text/Narrative Re-Assessment/Exam: Removed bleed ease strip from the left nare. No bleeding present. Heavy coat of bacitracin applied to both nares. Discharge instructions as documented. Departure - Departure Time of Disposition: 17:55 Disposition: Home, Self-Care 01 Clinical Impression: Epistaxis - Discharge Information Instructions: Nasal Foreign Body, [id number], Nosebleed, Adult, [id number] Referrals: Andres Sharma MD [Primary Care Provider] - Forms: ED Department Discharge Additional Instructions: If bleeding occurs: utilize afrin 1 to 2 spray's to affected nare. Apply bleed ease strip to the affected nare with gentle pressure for 20 minutes. Suggest every night prior to bed placing heavy coat of vaseline to the nares to reduce any dryness and irritation. Please followup with PCP as needed. Return to the E.D. if you develop a nose bleed not relieved with the above therapies.
== END 2017-06-24 18:06 | disposition home or self-care (01) ==
LOC: JD.ED 16:59
DX: R04.0 Epistaxis (principal); E78.00 Pure hypercholesterolemia, unspecified; I10 Essential (primary) hypertension; I25.2 Old myocardial infarction; Z91.041 Radiographic dye allergy status; Z79.82 Long term (current) use of aspirin; Z79.899 Other long term (current) drug therapy
CPT/HCPCS: 30300; 99283-25

== ENCOUNTER 2017-10-26 23:18 | Emergency (ER) | payer MEDICARE, OTHER ==
[2017-10-26 23:36] VITALS: BP 160/75
--- NOTE | 2017-10-27 00:19 | EDM.PDOC ---
ED HPI GENERAL MEDICAL PROBLEM - General Chief Complaint: Lower Extremity Injury/Pain Stated Complaint: FALL Time Seen by Provider: 10/26/17 23:30 Source of Information: Reports: Patient History Limitations: Reports: No Limitations - History of Present Illness INITIAL COMMENTS - FREE TEXT/NARRATIVE: This is a 87-year-old female. Tonight she went to the bathroom was going to sit down on a stool when her left leg slid out in front of her and she fell to the right striking the edge of the bathtub. She did not hit her head and she had no loss of consciousness. She complains of pain in her right hip area slightly in her right flank and her right ribs around to the front and slightly in her neck on the right side. She states she did not hit her head and she did not hit her neck but they are getting sore. She does have a bruise noted along the iliac crest on the right. She was able to get up and stand afterwards but because of the pain she comes to the ER for evaluation. She denies any other acute symptoms at this time. 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: Reports: Acetaminophen Right Hip Pain Score (Numeric/FACES): 8 - Related Data Allergies Allergy/AdvReac Type Severity Reaction Status Date / Time contrast dye Allergy Cough Uncoded 10/26/17 23:31 Home Meds: Home Meds Aspirin 81 mg PO DAILY 08/31/16 [History] Gabapentin [Neurontin] 200 mg PO TID PRN 08/31/16 [History] Latanoprost 1 dose EYEBOTH DAILY 08/31/16 [History] Metoprolol Succinate 50 mg PO DAILY 08/31/16 [History] Mirabegron [Myrbetriq] 1 tab PO DAILY 08/31/16 [History] Multivitamin [Poly-Vitamin] 1 each PO DAILY 08/31/16 [History] Omeprazole 1 tab PO DAILY 08/31/16 [History] Valsartan 320 mg PO DAILY 08/31/16 [History] atorvaSTATin Calcium [Atorvastatin Calcium] 10 mg PO DAILY 08/31/16 [History] Nitroglycerin 0.4 mg SL ASDIRECTED PRN #12 tab.subl 09/01/16 [Rx] Sertraline [Zoloft] 50 mg PO DAILY 09/01/16 [History] hydroCHLOROthiazide [Hydrochlorothiazide] 12.5 mg PO DAILY 09/01/16 [History] Lactulose 20 gm PO Q24H #600 ml 02/10/17 [Rx] Furosemide [Lasix] 20 mg PO DAILY 10/26/17 [History] Isosorbide Mononitrate [Imdur] 30 mg PO DAILY 10/26/17 [History] Losartan [Cozaar] 50 mg PO DAILY 10/26/17 [History] Hydrocodone/Acetaminophen [Hydrocodon-Acetaminoph 2.5-325] 1 each PO Q6H PRN # 15 tablet 10/27/17 [Rx] Past Medical History HEENT History: Reports: Cataract, Glaucoma, Impaired Vision Cardiovascular History: Reports: High Cholesterol, Hypertension, [place], Other (See Below) Other Cardiovascular History: cardiolyte stress test scheduled for 09/04/16 Gastrointestinal History: Reports: GERD, Other (See Below) Genitourinary History: Reports: Renal Disease 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: Musculoskeletal History: Reports: Arthritis, Back Pain, Chronic, Fibromyalgia Psychiatric History: Reports: Anxiety Endocrine/Metabolic History: Reports: Obesity/BMI 30+ Other Dermatologic History: dry skin - Past Surgical History HEENT Surgical History: Reports: Cataract Surgery Social & Family History - Family History Family Medical History: Noncontributory - Caffeine Use Caffeine Use: Reports: Coffee Other Caffeine Use: 2 cups a day Review of Systems - Review of Systems Review Of Systems: See Below Constitutional: Denies: Chills, Fever Eyes: Reports: No Symptoms Ears: Reports: No Symptoms Nose: Reports: No Symptoms Mouth/Throat: Reports: No Symptoms Respiratory: Denies: Shortness of Breath, Cough Cardiovascular: Reports: No Symptoms GI/Abdominal: Reports: Other (Morbidly obese) Genitourinary: Reports: No Symptoms Musculoskeletal: Reports: Neck Pain, Other (Rib pain and right hip pain) Skin: Reports: Other (As per history of present illness) Neurological: Denies: Headache, Numbness, Syncope, Tingling Psychiatric: Reports: No Symptoms ED EXAM, GENERAL - Physical Exam Exam: See Below Exam Limited By: No Limitations General Appearance: Alert, WD/WN, No Apparent Distress Eye Exam: Bilateral Eye: Normal Inspection Ears: Normal External Exam Nose: Normal Inspection Throat/Mouth: Normal Inspection, Normal Lips, Normal Voice, No Airway Compromise Head: Atraumatic, Normocephalic Neck: Supple, Other (Mild soreness in the right paraspinal muscles but she has good rotation of the neck and head noted) Respiratory/Chest: No Respiratory Distress, Lungs Clear, Normal Breath Sounds, Other (He complains of soreness of her right ribs around to the front but I do not see any obvious bruising of her rib cage or her back, there is no crepitus noted there is no single rib seems to be tender on palpation) Cardiovascular: Regular Rate, Rhythm, No Murmur GI/Abdominal: Soft, Other (Morbidly obese, she denies any abdominal tenderness at this time) Back Exam: Normal Inspection, Decreased Range of Motion, Other (The patient sat up in the bed for me no complaints of thoracic or lumbar tenderness or pain when she was sitting up). No: Paraspinal Tenderness, Vertebral Tenderness Extremities: Normal Inspection, Pedal Edema, Other (When I look at her right iliac crest she has a bruise noted about the size of her palm right over the iliac crest, when I palpate her prominence of her hip she really doesn't seem to have a lot of tenderness there its over her pelvis seems to be tender, she denies any right knee ankle or foot pain) Neurological: Alert, Oriented Psychiatric: Normal Affect, Normal Mood Course - Vital Signs Last Recorded V/S: Last Vital Signs Temp 98.5 F 10/26/17 23:31 Pulse 80 10/26/17 23:31 Resp 18 10/26/17 23:31 BP 160/75 H 10/26/17 23:31 Pulse Ox 95 10/26/17 23:31 - Orders/Labs/Meds Orders: Active Orders 24 hr Category Date Time Status Hip Min 2V or 3V Rt [CR] Stat Exams 10/27/17 00:13 Taken Pelvis 1V or 2V [CR] Stat Exams 10/27/17 00:13 Taken Ribs 2V w Chest Rt [CR] Stat Exams 10/27/17 00:13 Taken Meds: Medications Discontinued Medications Generic Name Dose Route Start Last Admin Trade Name Freq PRN Reason Stop Dose Admin Hydrocodone Bitart/Acetaminophen 0.5 tab 10/27/17 01:28 10/27/17 01:33 Horatio 325-5 Mg PO 10/27/17 01:29 0.5 tab ONETIME ONE Administration - Radiology Interpretation Free Text/Narrative:: Right rib x-rays do not show any acute fractures that I can see Pelvis films do not show any acute fractures Right hip does not suggest any acute fractures - Re-Assessments/Exams Free Text/Narrative Re-Assessment/Exam: 10/27/17 01:14 I spoke to the patient at length regarding her x-rays. I explained to her that she has bruises and strains from falling but there is no reason why she can't get up and move. I will provide her with a very low dose of hydrocodone to help with her soreness. I am not going to give her enough to get her hooked on the medication as she describes it. She is very much against wanting to get up or do much for herself and she was hoping to be admitted to the hospital but I explained to her they don't admit people to the hospital for bruises. She'll be going back to [facility]. Departure - Departure Time of Disposition: 01:15 Disposition: Home, Self-Care 01 Condition: Fair Clinical Impression: Contusion of rib on right side Qualifiers: Encounter type: initial encounter Qualified Code(s): S20.211A - Contusion of right front wall of thorax, initial encounter Contusion of pelvis Qualifiers: Encounter type: initial encounter Qualified Code(s): S30.0XXA - Contusion of lower back and pelvis, initial encounter Contusion of right hip Qualifiers: Encounter type: initial encounter Qualified Code(s): S70.01XA - Contusion of right hip, initial encounter - Discharge Information *PRESCRIPTION DRUG MONITORING PROGRAM REVIEWED*: Not Applicable *COPY OF PRESCRIPTION DRUG MONITORING REPORT IN PATIENT LINDA: Not Applicable Prescriptions: Hydrocodone/Acetaminophen [Hydrocodon-Acetaminoph 2.5-325] 1 each PO Q6H PRN # 15 tablet PRN Reason: Pain Instructions: Contusion, [id number] Referrals: Andres Sharma MD [Primary Care Provider] - Forms: ED Department Discharge Additional Instructions: You need to get up and move around or you will be more sore just by laying in the bed, you may take 1 of the pain pills every 6 hours as needed, use ice to your ribs and the side where you have the bruise to help with the soreness, follow-up with your doctor next week as needed, return to the ER as needed - My Orders Last 24 Hours: My Active Orders 10/27/17 00:13 Hip Min 2V or 3V Rt [CR] Stat Pelvis 1V or 2V [CR] Stat Ribs 2V w Chest Rt [CR] Stat - Assessment/Plan Last 24 Hours: My Active Orders 10/27/17 00:13 Hip Min 2V or 3V Rt [CR] Stat Pelvis 1V or 2V [CR] Stat Ribs 2V w Chest Rt [CR] Stat
[2017-10-27] MEDS ORDERED: Acetaminophen/HYDROcodone 325-5 MG Tab PO ONE (01:28)
--- NOTE | 2017-10-29 13:19 | CR ---
Chest and right ribs: Frontal view of the chest was obtained as well as three views of the right ribs. Comparison: Prior chest CT of 09/01/16. Heart is slightly enlarged. Slightly prominent fat is seen within the right cardiophrenic angle which is incidental. Mild parenchymal density is noted within the right upper chest. Slight parenchymal density is noted within the lateral left costophrenic angle. Degenerative change is noted within the right shoulder. No discrete fracture or other right-sided rib abnormality is seen. Impression: 1. Mild cardiomegaly. 2. Slight parenchymal density within the upper right lung and lateral left costophrenic angle. Please correlate if patient has any infectious symptoms for this to represent pneumonia. 3. No discrete rib abnormality is appreciated. Diagnostic code #3
--- NOTE | 2017-10-29 14:31 | CR ---
Right hip: AP and frog-leg lateral views the right hip were obtained. Diffuse joint space narrowing is seen. Bony structures are osteopenic. No acute fracture or other abnormality is seen. Incidental soft tissue calcification are seen off the greater trochanter. Impression: 1. Diffuse joint space narrowing within the right hip and other incidental findings. Nothing acute is appreciated on two-view right hip exam. Diagnostic code #2
== END 2017-10-27 01:52 | disposition home or self-care (01) ==
LOC: JD.ED 23:18
DX: S20.211A Contusion of right front wall of thorax, initial encounter (principal); S30.0XXA Contusion of lower back and pelvis, initial encounter; S70.01XA Contusion of right hip, initial encounter; S30.1XXA Contusion of abdominal wall, initial encounter; I10 Essential (primary) hypertension; E66.9 Obesity, unspecified; Z79.899 Other long term (current) drug therapy; Z79.82 Long term (current) use of aspirin; Z91.041 Radiographic dye allergy status; W01.198A Fall on same level from slipping, tripping and stumbling with subsequent striking against other object, initial encounter
CPT/HCPCS: 71101; 72170; 73502; 99283; A9270; 99284

== ENCOUNTER 2017-11-02 18:31 | Emergency (ER) | payer MEDICARE, OTHER, MEDICAID ==
[2017-11-02 18:59] VITALS: BP 148/120
[2017-11-02] MEDS ORDERED: Lidocaine 2% Jelly 10 ML Urojet MUCMEM ONE (19:16)
[2017-11-02] MEDS ORDERED: HYDROmorphone 1 MG/ML Syringe IM ONE (19:17)
--- NOTE | 2017-11-02 19:40 | EDM.PDOC ---
ED HPI GENERAL MEDICAL PROBLEM - General Chief Complaint: Gastrointestinal Problem Stated Complaint: CONSTIPATION Time Seen by Provider: 11/02/17 19:17 Source of Information: Reports: Patient History Limitations: Reports: No Limitations - History of Present Illness INITIAL COMMENTS - FREE TEXT/NARRATIVE: Patient is a 87 year old female who presents to the E.D. complaining of rectal pain and constipation. States she has history of contstipation and states in the past had to have fecal disimpaction. Has been taking lactulose daily since last fecal impaction. Today staff at her residence utilized fleet enema with no significant BM's. States She fell 1 wk prior landing on her right side. Has small bruise to the right flank with no pain present. She denies n/v, fever, dysuria, abdominal pain, hematuria, blood in stool, or any additional complaints. She has had no abdominal surgeries. Treatments CLEARANCE REP: Reports: Other (see below) Other Treatments CLEARANCE REP: fleets and oral meds Rectal Pain Score (Numeric/FACES): 10 - Related Data Allergies Allergy/AdvReac Type Severity Reaction Status Date / Time contrast dye Allergy Cough Uncoded 10/26/17 23:31 Home Meds: Home Meds Aspirin 81 mg PO DAILY 08/31/16 [History] Gabapentin [Neurontin] 200 mg PO TID PRN 08/31/16 [History] Latanoprost 1 dose EYEBOTH DAILY 08/31/16 [History] Metoprolol Succinate 50 mg PO DAILY 08/31/16 [History] Mirabegron [Myrbetriq] 1 tab PO DAILY 08/31/16 [History] Multivitamin [Poly-Vitamin] 1 each PO DAILY 08/31/16 [History] Omeprazole 1 tab PO DAILY 08/31/16 [History] Valsartan 320 mg PO DAILY 08/31/16 [History] atorvaSTATin Calcium [Atorvastatin Calcium] 10 mg PO DAILY 08/31/16 [History] Nitroglycerin 0.4 mg SL ASDIRECTED PRN #12 tab.subl 09/01/16 [Rx] Sertraline [Zoloft] 50 mg PO DAILY 09/01/16 [History] hydroCHLOROthiazide [Hydrochlorothiazide] 12.5 mg PO DAILY 09/01/16 [History] Lactulose 20 gm PO Q24H #600 ml 02/10/17 [Rx] Furosemide [Lasix] 20 mg PO DAILY 10/26/17 [History] Isosorbide Mononitrate [Imdur] 30 mg PO DAILY 10/26/17 [History] Losartan [Cozaar] 50 mg PO DAILY 10/26/17 [History] Hydrocodone/Acetaminophen [Hydrocodon-Acetaminoph 2.5-325] 1 each PO Q6H PRN # 15 tablet 10/27/17 [Rx] Past Medical History HEENT History: Reports: Cataract, Glaucoma, Impaired Vision Cardiovascular History: Reports: High Cholesterol, Hypertension, [place], Other (See Below) Other Cardiovascular History: cardiolyte stress test scheduled for 09/04/16 Gastrointestinal History: Reports: GERD, Other (See Below) Genitourinary History: Reports: Renal Disease 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: Musculoskeletal History: Reports: Arthritis, Back Pain, Chronic, Fibromyalgia Psychiatric History: Reports: Anxiety Endocrine/Metabolic History: Reports: Obesity/BMI 30+ Other Dermatologic History: dry skin - Past Surgical History HEENT Surgical History: Reports: Cataract Surgery Social & Family History - Family History Family Medical History: Noncontributory - Tobacco Use Smoking Status *Q: Never Smoker - Caffeine Use Caffeine Use: Reports: None Other Caffeine Use: 2 cups a day - Recreational Drug Use Recreational Drug Use: No ED ROS GENERAL - Review of Systems Review Of Systems: ROS reveals no pertinent complaints other than HPI. ED EXAM, GI/ABD - Physical Exam Exam: See Below Exam Limited By: No Limitations General Appearance: Alert, WD/WN, No Apparent Distress Eyes: Bilateral: Normal Appearance Ears: Hearing Grossly Normal Nose: Normal Inspection Throat/Mouth: Normal Voice, No Airway Compromise Neck: Normal Inspection, Supple Respiratory/Chest: No Respiratory Distress, Lungs Clear, Normal Breath Sounds Cardiovascular: Normal Peripheral Pulses, Regular Rate, Rhythm GI/Abdominal Exam: Normal Bowel Sounds, Soft, Non-Tender, No Organomegaly, No Distention, Other (Bruising to the right flank from fall 1 wk ago. NO pain with deep palpation of all quadrants of the abdomen. ) Extremities: Normal Inspection Neurological: Alert, Oriented, CN II-XII Intact (As tested), Normal Cognition, No Motor/Sensory Deficits Psychiatric: Normal Affect, Normal Mood Skin Exam: Warm, Dry, Intact, Normal Color Course - Vital Signs Last Recorded V/S: Last Vital Signs Temp 98.8 F 11/02/17 18:57 Pulse 92 08/31/18 18:57 Resp 20 11/02/17 18:57 BP 148/120 H 11/02/17 18:57 Pulse Ox 92 L 11/02/17 18:57 - Orders/Labs/Meds Meds: Medications Discontinued Medications Generic Name Dose Route Start Last Admin Trade Name Samara PRN Reason Stop Dose Admin Hydromorphone HCl 0.5 mg 11/02/17 19:17 11/02/17 20:04 Dilaudid IM 11/02/17 19:18 0.5 mg ONETIME ONE Administration Lidocaine HCl 10 ml 11/02/17 19:16 11/02/17 20:05 Xylocaine 2% Jelly MUCMEM 11/02/17 19:17 10 ml ONETIME ONE Administration - Re-Assessments/Exams Free Text/Narrative Re-Assessment/Exam: Patient is a history constipation and had a Fleet enema today that did not produce a bowel movement. States she has increasing pain to her rectum and is wishing to be disimpacted. She denies any fever, chills, abdominal pain, nausea or vomiting, dysuria, or blood in her stool. I have ordered soapsuds enema, Dilaudid 0.5 mg IM, and viscous lidocaine 2%. X- ray of the abdomen flat and upright will be obtained to evaluate stool pattern. On examination patient has no abdominal discomfort. Small bruising to the right side of her abdomen secondary to a recent fall one week ago. She has no history of abdominal surgeries. 2044 X-ray of the abdomen reviewed with Dr. Head. Patient has few air fluid levels and increased stool pattern in the descending, sigmoid colon, and rectal vault. Dr. Head is not concerned with history of fecal impaction with no abdominal pain, blood in stool, n/v, fever, or history of abdominal surgeries. Most likely the air fluid levels are as of result to the fecal impaction that would be resolved with disimpaction. I have discussed with the patient the results of the x-ray of the abdomen. Again she has no pain to her abdomen. She is not nauseated. On reexamination she has no abdominal pain. Unfortunately due to the increased numbers of patients within the E.D. the enema has not occurred. 11/02/17 22:06 Per nursing staff patient had copious amounts of stool removed with the enema and disimpaction. Reassessment, patient states she's feeling much better. She has no pain. No nausea. She is ready be discharged home. The patient remained hemodynamically stable while under my care in the E.D. I discussed the concerning symptoms for which to returnto the E.D. with the patient. The patient verbalized understanding. All questions were answered. Departure - Departure Time of Disposition: 22:08 Disposition: Home, Self-Care 01 Condition: Good Clinical Impression: Constipation Qualifiers: Constipation type: slow transit constipation Qualified Code(s): K59.01 - Slow transit constipation - Discharge Information Instructions: High-Fiber Diet, Constipation, Adult, [id number], Pain Medicine Instructions, [id number] Referrals: Andres Sharma MD [Primary Care Provider] - Forms: ED Department Discharge Additional Instructions: Continue taking all your home medications as prescribed. Suggest taking MiraLAX one capful every morning with juice. Make sure you're well hydrated with water. Increase fiber in your diet. Continue taking the lactulose as prescribed. Be aware of the gabapentin,[place], as well the diuretics you are on will increase the likelihood of developing constipation. Please follow up with her PCP this week for reevaluation. Return to the ED if you develop increasing pain, bloody stool, fever/chills, and/or nausea vomiting. May use colace 100mg one to two times a day as well.
--- NOTE | 2017-11-06 10:10 | CR ---
Abdomen: Supine and upright views of the abdomen were obtained. Comparison: Prior abdominal x-ray of 02/10/17. Stool and gas is noted within the colon. This does not appear obstructive. Scoliosis and degenerative change is noted within the spine. No free air is seen. Mild vascular calcification is seen. Impression: 1. Incidental findings. Diagnostic code #2
== END 2017-11-02 22:30 | disposition home or self-care (01) ==
LOC: JD.ED 18:31
DX: K59.01 Slow transit constipation (principal); I10 Essential (primary) hypertension; E66.9 Obesity, unspecified; Z79.899 Other long term (current) drug therapy; Z79.82 Long term (current) use of aspirin; Z91.041 Radiographic dye allergy status
CPT/HCPCS: 74019; 96372; 99283; J1170

== ENCOUNTER 2017-11-12 17:10 | Emergency (ER) | payer MEDICARE, OTHER, MEDICAID ==
[2017-11-12] MEDS ORDERED: Sodium Chloride 0.9% 1,000 ML IV ONE ×3 (17:34→22:21)
[2017-11-12] MEDS ORDERED: cefTRIAXone 2 GM in Sodium Chloride 0.9% 100 ML IV ONE (17:37)
[2017-11-12] MEDS ORDERED: Sodium Chloride 0.9% 10 ML Syringe FLUSH PRN (17:37)
--- NOTE | 2017-11-12 20:49 | EDM.PDOC ---
ED HPI GENERAL MEDICAL PROBLEM - General Chief Complaint: Respiratory Problem Stated Complaint: [facility] Time Seen by Provider: 11/12/17 17:50 Source of Information: Reports: Patient, [facility] Records History Limitations: Reports: No Limitations - History of Present Illness INITIAL COMMENTS - FREE TEXT/NARRATIVE: 87-year-old female arrives via [facility] for evaluation and treatment of fevers, weakness and recent falls. Patient is a poor historian. She appears to have underlying dementia. Patient is seen by myself in the ED on , 4 days ago. She was seen for chest pain. She had a complete workup including EKG, labs and a CT pulmonary angiogram due to an elevated d-dimer. Labs, EKG and imaging were unremarkable. She was sent back to [facility]. She has not followed up with her primary care provider since being seen. Per [facility]dc report she's had several falls over the weekend. She seems to be more weak than normal. She's had a temperature of 101. She is also coughing. Denies any abdominal pain, vomiting or diarrhea. Patient's oxygen sats are low in the 80s on room air. She does not normally wear oxygen. Reportedly she was started on antibiotics on Sunday, unclear exactly which started on. Patient is a full code. - Related Data Allergies Allergy/AdvReac Type Severity Reaction Status Date / Time contrast dye Allergy Cough Uncoded 10/26/17 23:31 Home Meds: Home Meds Aspirin 81 mg PO DAILY 08/31/16 [History] Gabapentin [Neurontin] 200 mg PO TID PRN 08/31/16 [History] Latanoprost 1 dose EYEBOTH DAILY 08/31/16 [History] Metoprolol Succinate 50 mg PO DAILY 08/31/16 [History] Mirabegron [Myrbetriq] 50 mg PO DAILY 08/31/16 [History] Multivitamin [Poly-Vitamin] 1 each PO DAILY 08/31/16 [History] Omeprazole 1 tab PO DAILY 08/31/16 [History] atorvaSTATin Calcium [Atorvastatin Calcium] 20 mg PO DAILY 08/31/16 [History] Nitroglycerin 0.4 mg SL ASDIRECTED PRN #12 tab.subl 09/01/16 [Rx] Sertraline [Zoloft] 25 mg PO DAILY 09/01/16 [History] Furosemide [Lasix] 20 mg PO DAILY 10/26/17 [History] Isosorbide Mononitrate [Imdur] 30 mg PO DAILY 10/26/17 [History] Losartan [Cozaar] 50 mg PO DAILY 10/26/17 [History] Hydrocodone/Acetaminophen [Hydrocodon-Acetaminoph 2.5-325] 1 each PO Q6H PRN # 15 tablet 10/27/17 [Rx] Acetaminophen [Pain Relief] 650 mg PO ASDIRECTED PRN 11/08/17 [History] Docusate Sodium [Colace] 100 mg PO ASDIRECTED PRN 11/08/17 [History] Lactulose 30 gm PO Q24H 11/08/17 [History] Phenylephrine HCl/Gardner Butter [Preparation H Suppository] 1 applic RECTAL DAILY 11/08/17 [History] Polyethylene Glycol 3350 [Miralax] 17 gm PO DAILY 11/08/17 [History] Past Medical History HEENT History: Reports: Cataract, Glaucoma, Impaired Vision Cardiovascular History: Reports: High Cholesterol, Hypertension, [place], Other (See Below) Other Cardiovascular History: cardiolyte stress test scheduled for 09/04/16 Gastrointestinal History: Reports: GERD, Other (See Below) Genitourinary History: Reports: Renal Disease [employer] History: Reports: Musculoskeletal History: Reports: Arthritis, Back Pain, Chronic, Fibromyalgia Psychiatric History: Reports: Anxiety Endocrine/Metabolic History: Reports: Obesity/BMI 30+ Other Dermatologic History: dry skin - Past Surgical History HEENT Surgical History: Reports: Cataract Surgery Social & Family History - Family History Family Medical History: Noncontributory - Tobacco Use Smoking Status *Q: Never Smoker - Caffeine Use Caffeine Use: Reports: Coffee Other Caffeine Use: 2 cups a day - Recreational Drug Use Recreational Drug Use: No ED ROS GENERAL - Review of Systems Review Of Systems: See Below Constitutional: Reports: Fever, Weakness Respiratory: Reports: Cough, Sputum GI/Abdominal: Denies: Abdominal Pain, Diarrhea, Vomiting ED EXAM, GENERAL - Physical Exam Exam: See Below Exam Limited By: No Limitations General Appearance: Alert, WD/WN, No Apparent Distress Eye Exam: Bilateral Eye: Normal Inspection, PERRL Ears: Normal External Exam Nose: Normal Inspection Throat/Mouth: Normal Inspection, Normal Lips, Normal Voice, No Airway Compromise Neck: Normal Inspection Respiratory/Chest: No Respiratory Distress, Wheezing (diffuse expiratory), Other (wet sounding, productive cough) Cardiovascular: Normal Peripheral Pulses, Regular Rate, Rhythm, No Murmur GI/Abdominal: Normal Bowel Sounds, Soft, Non-Tender Neurological: Alert, Confused Psychiatric: Normal Affect, Normal Mood Skin Exam: Warm, Dry, Normal Color Course - Vital Signs Last Recorded V/S: Last Vital Signs Temp 101.7 F H 11/12/17 17:16 Pulse 101 H 11/12/17 17:16 Resp 24 H 11/12/17 17:16 BP 101/39 L 11/12/17 17:16 Pulse Ox 82 L 11/12/17 17:16 - Orders/Labs/Meds Orders: Active Orders 24 hr Category Date Time Status Cardiac Monitoring [RC] . DIRECTED Care 11/12/17 17:36 Active Oxygen Therapy [RC] ASDIRECTED Care 11/12/17 17:34 Active Peripheral IV Care [RC] . DIRECTED Care 11/12/17 17:37 Active Chest 1V Frontal [CR] Stat Exams 11/12/17 17:34 Taken CULTURE BLOOD [BC] Stat Lab 11/12/17 17:48 Received CULTURE BLOOD [BC] Stat Lab 11/12/17 18:30 Received CULTURE URINE [RM] Stat Lab 11/12/17 18:40 Ordered UA W/MICROSCOPIC [URIN] Stat Lab 11/12/17 18:40 Ordered Sodium Chloride 0.9% [Saline Flush] Med 11/12/17 17:37 Active 10 ml FLUSH ASDIRECTED PRN Blood Culture x2 Reflex Set [OM.PC] Stat Oth 11/12/17 17:34 Ordered Peripheral IV Insertion Adult [OM.PC] Routine Oth 11/12/17 17:37 Ordered Medication Orders Sodium Chloride (Saline Flush) 10 ml FLUSH ASDIRECTED PRN PRN Reason: Keep Vein Open Last Admin: 11/12/17 18:21 Dose: 10 ml Labs: Laboratory Tests 11/12/17 11/12/17 11/12/17 Range/Units 18:15 18:15 18:15 WBC 14.20 H (3.98-10.04) K/mm3 RBC 3.31 L (3.98-5.22) M/mm3 Hgb 9.0 L (11.2-15.7) gm/L Hct 29.0 L (34.1-44.9) % MCV 87.6 (79.4-94.8) fl MCH 27.2 (25.6-32.2) pg MCHC 31.0 L (32.2-35.5) g/dl RDW Std Deviation 50.9 H (36.4-46.3) fL Plt Count 310 (182-369) K/mm3 MPV 10.7 (9.4-12.3) fl Neutrophils % (Manual) 83 H (40-60) % Band Neutrophils % 0 (0-10) % Lymphocytes % (Manual) 10 L (20-40) % Atypical Lymphs % 0 % Monocytes % (Manual) 7 (2-10) % Eosinophils % (Manual) 0 L (0.7-5.8) % Basophils % (Manual) 0 L (0.1-1.2) Platelet Estimate Adequate Plt Morphology Comment Normal Hypochromasia 1+ slight Poikilocytosis 1+ slight Microcytosis 1+ slight RBC Morph Comment Not Reportable Sodium 135 L (136-145) mEq/L Potassium 3.8 (3.5-5.1) mEq/L Chloride 98 (98-107) mEq/L Carbon Dioxide 25 (21-32) mEq/L Anion Gap 15.8 H (5-15) BUN 30 H (7-18) mg/dL Creatinine 1.8 H (0.55-1.02) mg/dL Est Cr Clr Drug Dosing 15.82 mL/min Estimated GFR (MDRD) 27 (>60) mL/min BUN/Creatinine Ratio 16.7 (14-18) Glucose 126 H (83-115) mg/dL Lactic Acid 1.3 (0.4-2.0) mmol/L Calcium 9.7 (8.5-10.1) mg/dL Magnesium 2.0 (1.8-2.4) mg/dl Total Bilirubin 0.7 (0.2-1.0) mg/dL AST 38 H (15-37) U/L ALT 26 (14-59) U/L Alkaline Phosphatase 99 (46-116) U/L C-Reactive Protein 32.5 H* (<1.0) mg/dL Total Protein 6.9 (6.4-8.2) g/dl Albumin 2.5 L (3.4-5.0) g/dl Globulin 4.4 gm/dL Albumin/Globulin Ratio 0.6 L (1-2) Urine Color (Yellow) Urine Appearance (Clear) Urine pH (5.0-8.0) Ur Specific [place] (1.005-1.030) Urine Protein (Negative) Urine Glucose (UA) (Negative) Urine Ketones (Negative) Urine Occult Blood (Negative) Urine Nitrite (Negative) Urine Bilirubin (Negative) Urine Urobilinogen (0.2-1.0) Ur Leukocyte Esterase (Negative) Urine RBC (0-5) /hpf Urine WBC (0-5) /hpf Ur Epithelial Cells (0-5) /hpf Urine Bacteria (FEW) /hpf Fine Granular Casts (0-5) /lpf Urine Mucus (FEW) /hpf Mycoplasma pneumon IgM Negative (NEGATIVE) 11/12/17 Range/Units 18:40 WBC (3.98-10.04) K/mm3 RBC (3.98-5.22) M/mm3 Hgb (11.2-15.7) gm/L Hct (34.1-44.9) % MCV (79.4-94.8) fl MCH (25.6-32.2) pg MCHC (32.2-35.5) g/dl RDW Std Deviation (36.4-46.3) fL Plt Count (182-369) K/mm3 MPV (9.4-12.3) fl Neutrophils % (Manual) (40-60) % Band Neutrophils % (0-10) % Lymphocytes % (Manual) (20-40) % Atypical Lymphs % % Monocytes % (Manual) (2-10) % Eosinophils % (Manual) (0.7-5.8) % Basophils % (Manual) (0.1-1.2) Platelet Estimate Plt Morphology Comment Hypochromasia Poikilocytosis Microcytosis RBC Morph Comment Sodium (136-145) mEq/L Potassium (3.5-5.1) mEq/L Chloride (98-107) mEq/L Carbon Dioxide (21-32) mEq/L Anion Gap (5-15) BUN (7-18) mg/dL Creatinine (0.55-1.02) mg/dL Est Cr Clr Drug Dosing mL/min Estimated GFR (MDRD) (>60) mL/min BUN/Creatinine Ratio (14-18) Glucose (83-115) mg/dL Lactic Acid (0.4-2.0) mmol/L Calcium (8.5-10.1) mg/dL Magnesium (1.8-2.4) mg/dl Total Bilirubin (0.2-1.0) mg/dL AST (15-37) U/L ALT (14-59) U/L Alkaline Phosphatase (46-116) U/L C-Reactive Protein (<1.0) mg/dL Total Protein (6.4-8.2) g/dl Albumin (3.4-5.0) g/dl Globulin gm/dL Albumin/Globulin Ratio (1-2) Urine Color Yellow (Yellow) Urine Appearance Clear (Clear) Urine pH 5.5 (5.0-8.0) Ur Specific [place] > or = 1.030 (1.005-1.030) Urine Protein 1+ H (Negative) Urine Glucose (UA) Negative (Negative) Urine Ketones Trace H (Negative) Urine Occult Blood Negative (Negative) Urine Nitrite Negative (Negative) Urine Bilirubin 1+ H (Negative) Urine Urobilinogen 0.2 (0.2-1.0) Ur Leukocyte Esterase Negative (Negative) Urine RBC 0-5 (0-5) /hpf Urine WBC 0-5 (0-5) /hpf Ur Epithelial Cells 0-5 (0-5) /hpf Urine Bacteria Moderate H (FEW) /hpf Fine Granular Casts 0-5 (0-5) /lpf Urine Mucus Moderate H (FEW) /hpf Mycoplasma pneumon IgM (NEGATIVE) Meds: Medications Generic Name Dose Route Start Last Admin Trade Name Freq PRN Reason Stop Dose Admin Sodium Chloride 10 ml 11/12/17 17:37 11/12/17 18:21 Saline Flush FLUSH 10 ml ASDIRECTED PRN Administration Keep Vein Open Discontinued Medications Generic Name Dose Route Start Last Admin Trade Name Freq PRN Reason Stop Dose Admin Azithromycin 500 mg 11/12/17 23:54 Zithromax PO 11/12/17 23:55 ONETIME ONE Sodium Chloride 1,000 mls @ 999 mls/hr 11/12/17 17:34 11/12/17 18:10 Normal Saline IV 11/12/17 18:34 999 mls/hr ONETIME ONE Administration Ceftriaxone Sodium 2 gm/ 100 mls @ 100 mls/hr 11/12/17 17:37 09/10/18 18:15 Sodium Chloride IV 11/12/17 18:36 100 mls/hr ONETIME ONE Administration Sodium Chloride 1,000 mls @ 999 mls/hr 11/12/17 17:37 11/12/17 19:32 Normal Saline IV 11/12/17 18:37 999 mls/hr ONETIME ONE Administration Sodium Chloride 1,000 mls @ 999 mls/hr 11/12/17 22:21 Normal Saline IV 11/12/17 23:21 ONETIME ONE - Radiology Interpretation Free Text/Narrative:: Chest: Portable view of the chest was obtained. Comparison: Prior chest CT of 11/08/17 and chest x-ray also performed on . Mild increased density is noted within the right upper lung. This is an interval change from previous exams. Focal density is also seen within the left base as an interval change from previous study. Lungs otherwise are clear. Heart is slightly prominent. Tortuous thoracic aorta is seen. Osteopenia is present. Impression: 1. Increased density within right upper lung and within the left lung base which are an interval change from prior study. Findings within right upper lobe could represent pneumonia. Findings within the left base could represent an additional area of pneumonia or atelectasis. 2. Heart size is slightly enlarged which is more prominent than the previous exam. 3. Other incidental findings. - Re-Assessments/Exams Free Text/Narrative Re-Assessment/Exam: 11/13/17 00:42 Patient appears to be septic from pneumonia. 2 g of Rocephin given. She received 2 L of fluid as her pressures have been in the 90s systolic. Doing better after 2 L of fluid. systolic blood pressure in the 120s after 2L fluids. Case discussed with Dr. Hughes, hospice on-call. Has concerns that she is a full . This should be better served in [place] she is concerned over the length of stay as well as not having a specialist should she need them. Recommended giving 500 mg by mouth azithromycin. Case discussed with , hospice on-call at [facility] in [place]. Agrees to that the patient. Patient will book go by ground ambulance for monitoring, oxygen and IV fluids. Departure - Departure Time of Disposition: 00:48 Disposition: DC/Tfer to Acute Hospital 02 Condition: Poor Clinical Impression: Pneumonia, Sepsis - Discharge Information *PRESCRIPTION DRUG MONITORING PROGRAM REVIEWED*: No *COPY OF PRESCRIPTION DRUG MONITORING REPORT IN PATIENT LINDA: No Referrals: PCP,None [Primary Care Provider] - Forms: ED Department Discharge Additional Instructions: Patient to go by ground ambulance to [facility]. Dr. El arevalo. - My Orders Last 24 Hours: My Active Orders 11/12/17 17:34 Oxygen Therapy [RC] ASDIRECTED Chest 1V Frontal [CR] Stat Blood Culture x2 Reflex Set [OM.PC] Stat 11/12/17 17:36 Cardiac Monitoring [RC] . DIRECTED 11/12/17 17:37 Peripheral IV Care [RC] . DIRECTED Sodium Chloride 0.9% [Saline Flush] 10 ml FLUSH ASDIRECTED PRN Peripheral IV Insertion Adult [OM.PC] Routine 11/12/17 17:48 CULTURE BLOOD [BC] Stat 11/12/17 18:30 CULTURE BLOOD [BC] Stat 11/12/17 18:40 CULTURE URINE [RM] Stat UA W/MICROSCOPIC [URIN] Stat - Assessment/Plan Last 24 Hours: My Active Orders 11/12/17 17:34 Oxygen Therapy [RC] ASDIRECTED Chest 1V Frontal [CR] Stat Blood Culture x2 Reflex Set [OM.PC] Stat 11/12/17 17:36 Cardiac Monitoring [RC] . DIRECTED 11/12/17 17:37 Peripheral IV Care [RC] . DIRECTED Sodium Chloride 0.9% [Saline Flush] 10 ml FLUSH ASDIRECTED PRN Peripheral IV Insertion Adult [OM.PC] Routine 11/12/17 17:48 CULTURE BLOOD [BC] Stat 11/12/17 18:30 CULTURE BLOOD [BC] Stat 11/12/17 18:40 CULTURE URINE [RM] Stat UA W/MICROSCOPIC [URIN] Stat
[2017-11-12] MEDS ORDERED: Azithromycin 250 MG Tab PO ONE (23:54)
[2017-11-13 06:42] VITALS: BP 109/40
--- NOTE | 2017-11-13 06:47 | CR ---
Chest: Portable view of the chest was obtained. Comparison: Prior chest CT of 11/08/17 and chest x-ray also performed on 11/08/17. Mild increased density is noted within the right upper lung. This is an interval change from previous exams. Focal density is also seen within the left base as an interval change from previous study. Lungs otherwise are clear. Heart is slightly prominent. Tortuous thoracic aorta is seen. Osteopenia is present. Impression: 1. Increased density within right upper lung and within the left lung base which are an interval change from prior study. Findings within right upper lobe could represent pneumonia. Findings within the left base could represent an additional area of pneumonia or atelectasis. 2. Heart size is slightly enlarged which is more prominent than the previous exam. 3. Other incidental findings. Diagnostic code #3
[2017-11-13] MEDS ORDERED: Sodium Chloride 0.9% 1,000 ML ONE (07:01)
[2017-11-13] MEDS ORDERED: Sodium Chloride 0.9% 1,000 ML IV SCH (07:15)
== END 2017-11-13 07:15 ==
LOC: JD.ED 17:10
DX: A41.9 Sepsis, unspecified organism (principal); J18.9 Pneumonia, unspecified organism; I10 Essential (primary) hypertension; E66.9 Obesity, unspecified; Z79.82 Long term (current) use of aspirin; Z79.899 Other long term (current) drug therapy; Z91.041 Radiographic dye allergy status
CPT/HCPCS: 36415; 71045; 80053; 81001; 83605; 83735; 85007; 85027; 86140; 86738; 87040; 87086; 96361; 96365; 99285; A9270; J0696; J7030; J7040; J7050; 99284

== ENCOUNTER 2017-11-26 05:43 | Inpatient (IN) | payer MEDICARE, OTHER, MEDICAID ==
--- NOTE | 2017-11-26 06:15 | EDM.PDOC ---
ED HPI GENERAL MEDICAL PROBLEM - General Chief Complaint: Chest Pain Stated Complaint: [facility] Time Seen by Provider: 11/26/17 05:45 Source of Information: Reports: Patient, RN Notes Reviewed History Limitations: Reports: No Limitations - History of Present Illness INITIAL COMMENTS - FREE TEXT/NARRATIVE: The patient states that she developed retrosternal chest pain around 04:50 this morning, while wheeling herself around [facility] in a wheelchair. She describes the sensation as a pressure. It was a pain, not a discomfort. It came on suddenly, and did not radiate. The patient states that she felt lightheaded, but denies nausea or sense of impending doom. She is not sure if she also felt dyspneic or diaphoretic. She was given 3 nitroglycerin 5 minutes apart, as well as Pepto-Bismol, and states that her pain immediately started to improve. Upon arrival to the ED, she rated her pain as a 4 of 10, however, when I saw her, about 2 minutes after arrival to the ED, she stated that she had no pain whatsoever. She states that she has had similar symptoms many times in the past. Her medical records, as far back as 08/31/2016 (the oldest records I can access), indicate that she has had a WI, however, the patient denies having a history of coronary artery disease, WI, coronary angiogram, coronary stents, or CABG. She denies having a Improvement Engineer, and believes that the nitroglycerin was prescribed by her PCP, Dr. Sharma. Unfortunately, no paperwork was sent with the patient from [facility]. Middle Chest Pain Score (Numeric/FACES): 4 - Related Data Allergies Allergy/AdvReac Type Severity Reaction Status Date / Time contrast dye Allergy Cough Uncoded 11/26/17 05:48 Home Meds: Home Meds Aspirin 81 mg PO DAILY 08/31/16 [History] Gabapentin [Neurontin] 200 mg PO TID PRN 08/31/16 [History] Latanoprost 1 dose EYEBOTH DAILY 08/31/16 [History] Metoprolol Succinate 50 mg PO DAILY 08/31/16 [History] Mirabegron [Myrbetriq] 50 mg PO DAILY 08/31/16 [History] Multivitamin [Poly-Vitamin] 1 each PO DAILY 08/31/16 [History] Omeprazole 1 tab PO DAILY 08/31/16 [History] atorvaSTATin Calcium [Atorvastatin Calcium] 20 mg PO DAILY 08/31/16 [History] Nitroglycerin 0.4 mg SL ASDIRECTED PRN #12 tab.subl 09/01/16 [Rx] Sertraline [Zoloft] 25 mg PO DAILY 09/01/16 [History] Furosemide [Lasix] 20 mg PO DAILY 10/26/17 [History] Isosorbide Mononitrate [Imdur] 30 mg PO DAILY 10/26/17 [History] Losartan [Cozaar] 50 mg PO DAILY 10/26/17 [History] Hydrocodone/Acetaminophen [Hydrocodon-Acetaminoph 2.5-325] 1 each PO Q6H PRN # 15 tablet 10/27/17 [Rx] Acetaminophen [Pain Relief] 650 mg PO ASDIRECTED PRN 11/08/17 [History] Docusate Sodium [Colace] 100 mg PO ASDIRECTED PRN 11/08/17 [History] Lactulose 30 gm PO Q24H 11/08/17 [History] Phenylephrine HCl/Marcy Butter [Preparation H Suppository] 1 applic RECTAL DAILY 11/08/17 [History] Polyethylene Glycol 3350 [Miralax] 17 gm PO DAILY 11/08/17 [History] Past Medical History HEENT History: Reports: Cataract, Glaucoma, Impaired Vision Cardiovascular History: Reports: High Cholesterol, Hypertension Respiratory History: Reports: Other (See Below) (wears O2, 3L continuously, reason unclear) Gastrointestinal History: Reports: GERD, Hiatal Hernia Genitourinary History: Reports: Chronic Renal Insuffiency, Other (See Below) ( Renal cysts) 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: Musculoskeletal History: Reports: Arthritis, Back Pain, Chronic Psychiatric History: Reports: Anxiety, Depression, Other (See Below) ( Fibromyalgia) Endocrine/Metabolic History: Reports: Obesity/BMI 30+ - Past Surgical History HEENT Surgical History: Reports: Cataract Surgery Social & Family History - Family History Family Medical History: Noncontributory - Tobacco Use Smoking Status *Q: Never Smoker Second Hand Smoke Exposure: No - Caffeine Use Caffeine Use: Reports: Coffee Other Caffeine Use: 2 cups a day - Alcohol Use Alcohol Use History: No - Recreational Drug Use Recreational Drug Use: No - Living Situation & Occupation Living situation: Reports: , Extended Care Facility ([facility]) Occupation: Retired ED ROS GENERAL - Review of Systems Review Of Systems: ROS reveals no pertinent complaints other than HPI. ED EXAM, GENERAL - Physical Exam Exam: See Below Exam Limited By: No Limitations General Appearance: Alert, WD/WN, No Apparent Distress Eye Exam: Bilateral Eye: EOMI, Normal Inspection Ears: Normal External Exam, Hearing Grossly Normal Nose: Normal Inspection, No Blood Throat/Mouth: Normal Inspection, Normal Lips, Normal Voice, No Airway Compromise Head: Atraumatic, Normocephalic Neck: Normal Inspection, Full Range of Motion Respiratory/Chest: No Respiratory Distress, Lungs Clear, Normal Breath Sounds, No Accessory Muscle Use, Other (Reproducible tenderness to palpation of the epigastrium and lower sternum, the same as the discomfort that brought the patient to the ED) Cardiovascular: Normal Peripheral Pulses, Regular Rate, Rhythm, No Gallop, No JVD, No Murmur, No Rub Peripheral Pulses: 4+: Radial (L), Radial (R) GI/Abdominal: Normal Bowel Sounds, Soft, No Organomegaly, No Distention, No Abnormal Bruit, No Mass, Tender (Reproducible tenderness to palpation of the epigastrium and lower sternum, the same as the discomfort that brought the patient to the ED) (Female) Exam: Deferred Rectal (Female) Exam: Normal Exam, Normal Rectal Tone, Heme - Stool, Hemorrhoids (External, non-thrombosed) Back Exam: Normal Inspection, Full Range of Motion, NT Extremities: Normal Inspection, Normal Range of Motion, No Pedal Edema, Normal Capillary Refill Neurological: Alert, Oriented, Normal Cognition, No Motor/Sensory Deficits Psychiatric: Normal Affect Skin Exam: Warm, Dry, Intact, Normal Color, No Rash EKG INTERPRETATION EKG Date: 11/26/17 Time: 05:47 Rhythm: NSR Rate (Beats/Min): 79 [place]: Normal P-Wave: Present QRS: Normal (LVH) ST-T: Normal QT: Normal Comparison: Change From Previous EKG (ECG 08/31/2016 demonstrated early transition, current one does not, otherwise, no change) Course - Vital Signs Last Recorded V/S: Last Vital Signs Temp 36.9 C 11/26/17 05:44 Pulse 80 11/26/17 05:44 Resp 14 11/26/17 05:44 BP 124/46 L 11/26/17 05:44 Pulse Ox 95 11/26/17 05:44 - Orders/Labs/Meds Orders: Active Orders 24 hr Category Date Time Status EKG Documentation Completion [RC] STAT Care 11/26/17 06:00 Active Chest 1V Frontal [CR] Stat Exams 11/26/17 06:00 Taken FE, TIBC, TRANSFERRIN, FE SAT [CHEM] Stat Lab 11/26/17 06:54 Ordered FERRITIN [CHEM] Stat Lab 11/26/17 06:54 Ordered FOLIC ACID [CHEM] Stat Lab 11/26/17 06:54 Ordered LACTATE DEHYDROGENASE,LDH [CHEM] Stat Lab 11/26/17 06:53 Ordered RETICULOCYTE COUNT [HEME] Stat Lab 11/26/17 06:54 Ordered TYPE AND SCREEN [BBK] Stat Lab 11/26/17 06:56 Ordered VITAMIN B12 [CHEM] Stat Lab 11/26/17 06:54 Ordered Transfuse PRBC [Transfuse Red Blood Cells] [COMM] Stat Oth 11/26/17 06:56 Ordered Labs: Laboratory Tests 11/26/17 11/26/17 11/26/17 Range/Units 05:55 05:55 05:57 WBC 4.89 (3.98-10.04) K/mm3 RBC 2.33 L (3.98-5.22) M/mm3 Hgb 6.3 L* (11.2-15.7) gm/L Hct 21.2 L (34.1-44.9) % MCV 91.0 (79.4-94.8) fl MCH 27.0 (25.6-32.2) pg MCHC 29.7 L (32.2-35.5) g/dl RDW Std Deviation 57.9 H (36.4-46.3) fL Plt Count 275 (182-369) K/mm3 MPV 10.2 (9.4-12.3) fl Neutrophils % (Manual) 68 H (40-60) % Band Neutrophils % 0 (0-10) % Lymphocytes % (Manual) 28 (20-40) % Atypical Lymphs % 1 % Monocytes % (Manual) 3 (2-10) % Eosinophils % (Manual) 0 L (0.7-5.8) % Basophils % (Manual) 0 L (0.1-1.2) Platelet Estimate Adequate Plt Morphology Comment Normal Hypochromasia 1+ slight Poikilocytosis 2+ moderate Basophilic Stippling 1+ slight Anisocytosis 2+ moderate Microcytosis 1+ slight Macrocytosis 1+ slight Ovalocytes 1+ slight RBC Morph Comment Abnormal Sodium 136 (136-145) mEq/L Potassium 4.4 (3.5-5.1) mEq/L Chloride 104 (98-107) mEq/L Carbon Dioxide 28 (21-32) mEq/L Anion Gap 8.4 (5-15) BUN 19 H (7-18) mg/dL Creatinine 1.3 H (0.55-1.02) mg/dL Est Cr Clr Drug Dosing 23.01 mL/min Estimated GFR (MDRD) 39 (>60) mL/min BUN/Creatinine Ratio 14.6 (14-18) Glucose 148 H (83-115) mg/dL POC Glucose 137 H (83-110) mg/dL Calcium 9.9 (8.5-10.1) mg/dL Total Bilirubin 0.3 (0.2-1.0) mg/dL AST 31 (15-37) U/L ALT 31 (14-59) U/L Alkaline Phosphatase 107 (46-116) U/L Troponin I < 0.017 (0.00-0.056) ng/mL Total Protein 6.9 (6.4-8.2) g/dl Albumin 2.7 L (3.4-5.0) g/dl Globulin 4.2 gm/dL Albumin/Globulin Ratio 0.6 L (1-2) Lipase 119 (73-393) U/L - Re-Assessments/Exams Free Text/Narrative Re-Assessment/Exam: 11/26/17 06:23 Portable chest radiograph reviewed. Cardiac silhouette appears to be within normal limits. The pulmonary vascular congestion. No pleural effusions seen on this AP view. There is increased density noted in the left base, previously seen on portal chest radiograph 11/12/2017. There appears to be atelectasis at the right base, but no focal infiltrate. No pneumothorax. Aortosclerosis incidentally noted. Formal read per the Radiologist pending. 11/26/17 06:52 The patient's H/H has returned as substantially depressed at 6.3/21.2. She is normochromic, normocytic. Her H/H was 9.0/29.0 on 11/12/2017. A rectal exam found brown, heme-negative stool. I have ordered an anemia workup that includes an LDH, iron, ferritin, TIBC, transferrin, % saturation, reticulocyte count, folic acid level, and B12 level. I have ordered a type and screen, and will transfuse 2 units of PRBCs. 11/26/17 07:[address] Hughes at 06:59. She accepted the patient for placement into observation on telemetry. Departure - Departure Time of Disposition: 07:03 Disposition: Refer to Observation Condition: Fair Clinical Impression: Severe anemia Chest pain Qualifiers: Chest pain type: unspecified Qualified Code(s): R07.9 - Chest pain, unspecified - My Orders Last 24 Hours: My Active Orders 11/26/17 06:00 EKG Documentation Completion [RC] STAT Chest 1V Frontal [CR] Stat 11/26/17 06:53 LACTATE DEHYDROGENASE,LDH [CHEM] Stat 11/26/17 06:54 FE, TIBC, TRANSFERRIN, FE SAT [CHEM] Stat FERRITIN [CHEM] Stat FOLIC ACID [CHEM] Stat RETICULOCYTE COUNT [HEME] Stat VITAMIN B12 [CHEM] Stat 11/26/17 06:56 TYPE AND SCREEN [BBK] Stat Transfuse PRBC [Transfuse Red Blood Cells] [COMM] Stat - Assessment/Plan Last 24 Hours: My Active Orders 11/26/17 06:00 EKG Documentation Completion [RC] STAT Chest 1V Frontal [CR] Stat 11/26/17 06:53 LACTATE DEHYDROGENASE,LDH [CHEM] Stat 11/26/17 06:54 FE, TIBC, TRANSFERRIN, FE SAT [CHEM] Stat FERRITIN [CHEM] Stat FOLIC ACID [CHEM] Stat RETICULOCYTE COUNT [HEME] Stat VITAMIN B12 [CHEM] Stat 11/26/17 06:56 TYPE AND SCREEN [BBK] Stat Transfuse PRBC [Transfuse Red Blood Cells] [COMM] Stat
--- NOTE | 2017-11-26 07:13 | CR ---
Chest: Portable view of the chest was obtained. Comparison: Prior chest x-ray of 11/12/17. Increased density within the left base. Findings have slightly worsened from prior study most likely representing pneumonia. Minimal atelectasis is seen within the right lung base. Lungs otherwise are clear. Heart size and mediastinum are within normal limits for portable technique. Bony structures are grossly intact. Impression: 1. Increasing density within left lung base most likely representing pneumonia. 2. Other incidental findings. Diagnostic code #3
[2017-11-26] MEDS ORDERED: Sodium Chloride 0.9% 1,000 ML IV SCH (07:45)
--- NOTE | 2017-11-26 08:16 | PCM.HP ---
H&P History of Present Illness - General Date of Service: 11/26/17 Admit Problem/Dx: Admission Diagnosis/Problem Admission Diagnosis/Problem Anemia Source of Information: Patient, Provider, RN, RN Notes Reviewed History Limitations: Reports: No Limitations - History of Present Illness Initial Comments - Free Text/Narative: Arlene Swenson is an 87 yo female who presents to our ED early this AM with retrosternal chest pain which began around 450 this morning. His reportedly will herself around [facility] in a wheelchair when the pain started. She describes it as a pressure which came on suddenly and does not radiate. She states she felt lightheaded but denies nausea or sense of impending doom. Unsure if she's been dyspneic or diaphoretic. She is given 3 nitroglycerin 5 minutes apart and Pepto-Bismol which reportedly improved her pain. In the ED pain was rated for a 10 initially, however quickly resolved. She reports she's had similar symptoms in the past. Prior records indicate a history of IN. She believes her nitroglycerine was prescribed by her PCP and denies seeing a e learning developer. In the ED temp was 36.9 Celsius. Pulse 80. Respirations 14. BP 124/46. Pulse ox 95%. Total EKG was obtained and interpreted by the ED provider as normal sinus rhythm at 79 bpm with LVH. Labs are obtained: WBC is 4.89. RBC 2.33. Hemoglobin very low at 6.3. Hematocrit 21.2. She was normocytic. Platelets are normal at 275,000. Neutrophils are elevated at 60%. There is no bandemia. Sodium was good at 136. Potassium 4.4. Chloride 104. Conducted 28. Anion gap 8.4. BUN is high at 19. Creatinine 1.3. EGFR is 39. Glucose is high at 148. Calcium 9.9. Bilirubin 0.3. Liver enzymes looked good with AST at 31, ALT of 31, alkaline phosphatase at 107. Troponin is negative at less than 0.017. Protein is 2.9. Albumin is low at 2.7. Chest x-rays obtained and interpreted by Dr. Navarro as 1. increased density within the left lung base most likely representing pneumonia. 2. Other incidental findings. Rectal exam was performed and showed brown heme negative stool. Anemia workup including LDH, iron, ferritin, TIBC, transferrin, percent saturation, reticulocyte count, folic acid level, and B12 level has been obtained and is pending. Type and screen was performed (she is o Positive, negative antibodies ) and 2 units PRBCs infusing. She carries a history of HLD, HTN, spontaneous 3 L O2 use, GERD, hiatal hernia, chronic renal insufficiency, arthritis, chronic back pain, anxiety, depression, fibromyalgia, obesity. She was never a smoker. She is a full code. Her PCP is Dr. Sharma. She is subsequently admitted to the medial floor on telemetry. Middle Chest Pain Score (Numeric/FACES): 4 - Related Data Allergies/Adverse Reactions: Allergies Allergy/AdvReac Type Severity Reaction Status Date / Time Iodinated Contrast- Oral and Allergy unknown Verified 11/26/17 10:15 IV Dye contrast dye Allergy Cough Uncoded 11/26/17 05:48 Home Medications: Home Meds Gabapentin [Neurontin] 200 mg PO BID PRN 08/31/16 [History] Metoprolol Succinate 50 mg PO DAILY 08/31/16 [History] Mirabegron [Myrbetriq] 50 mg PO DAILY 08/31/16 [History] Multivitamin [Poly-Vitamin] 1 each PO DAILY 08/31/16 [History] Omeprazole 1 tab PO DAILY 08/31/16 [History] atorvaSTATin Calcium [Atorvastatin Calcium] 20 mg PO DAILY 08/31/16 [History] Nitroglycerin 0.4 mg SL ASDIRECTED PRN #12 tab.subl 09/01/16 [Rx] Furosemide [Lasix] 20 mg PO DAILY 10/26/17 [History] Isosorbide Mononitrate [Imdur] 30 mg PO DAILY 10/26/17 [History] Losartan [Cozaar] 50 mg PO DAILY 10/26/17 [History] Acetaminophen [Pain Relief] 650 mg PO Q4HR PRN 11/08/17 [History] Docusate Sodium [Colace] 100 mg PO BID PRN 11/08/17 [History] Lactulose 30 gm PO DAILY 11/08/17 [History] Polyethylene Glycol 3350 [Miralax] 17 gm PO DAILY 11/08/17 [History] Acetaminophen/HYDROcodone [[place] 325-5 MG] 1 tab PO Q6HR PRN 11/26/17 [History] Albuterol Sulfate 2.5 mg IH Q4HR PRN 11/26/17 [History] Aspirin [Halfprin] 81 mg PO DAILY 11/26/17 [History] Benzonatate 100 mg PO Q4HR PRN 11/26/17 [History] Gabapentin [Neurontin] 200 mg PO QPM 11/26/17 [History] Travoprost [Travatan Z] 1 drop OP DAILY 11/26/17 [History] Triamcinolone Acetonide [Triamcinolone Acetonide 0.1% Oint] 1 applic TOP BID PRN 11/26/17 [History] Quin Vital [Preparation H] 1 each TP DAILY 11/26/17 [History] Past Medical History HEENT History: Reports: Cataract, Glaucoma, Impaired Vision Cardiovascular History: Reports: High Cholesterol, Hypertension Other Cardiovascular History: cardiolyte stress test scheduled for 09/04/16 Respiratory History: Reports: Other (See Below) (wears O2, 3L continuously, reason unclear) Other Respiratory History: Wears home oxygen Gastrointestinal History: Reports: GERD, Hiatal Hernia Genitourinary History: Reports: Chronic Renal Insuffiency, Other (See Below) ( Renal cysts) [employer]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: Musculoskeletal History: Reports: Arthritis, Back Pain, Chronic Psychiatric History: Reports: Anxiety, Depression, Other (See Below) ( Fibromyalgia) Endocrine/Metabolic History: Reports: Obesity/BMI 30+ Other Dermatologic History: dry skin - Past Surgical History HEENT Surgical History: Reports: Cataract Surgery Social & Family History - Family History Family Medical History: Noncontributory - Tobacco Use Smoking Status *Q: Never Smoker Second Hand Smoke Exposure: No - Caffeine Use Caffeine Use: Reports: Coffee Other Caffeine Use: 2 cups a day - Recreational Drug Use Recreational Drug Use: No - Living Situation & Occupation Living situation: Reports: , Extended Care Facility ([facility]) Occupation: Retired H&P Review of Systems - Review of Systems: Review Of Systems: See Below General: Reports: No Symptoms. Denies: Fever, Chills, Malaise, Weakness, Fatigue HEENT: Reports: No Symptoms. Denies: Sinus Congestion, Sore Throat Pulmonary: Reports: No Symptoms, Cough (occaional s/p PNA ). Denies: Shortness of Breath, Wheezing, Pleuritic Chest Pain, Sputum Cardiovascular: Reports: Chest Pain (Reproducible ). Denies: Palpitations, Dyspnea on Exertion, Edema, Lightheadedness Gastrointestinal: Reports: No Symptoms. Denies: Abdominal Pain, Constipation, Distension, Nausea, Vomiting Genitourinary: Reports: No Symptoms Musculoskeletal: Reports: No Symptoms Skin: Reports: No Symptoms Psychiatric: Reports: No Symptoms Neurological: Reports: No Symptoms. Denies: Confusion Hematologic/Lymphatic: Reports: Anemia. Denies: Easy Bleeding, Easy Bruising Immunologic: Reports: No Symptoms Exam - Exam Exam: See Below - Vital Signs Vital Signs: Last Vital Signs Temp 98.5 F 11/26/17 05:44 Pulse 80 11/26/17 05:44 Resp 14 11/26/17 05:44 BP 124/46 L 11/26/17 05:44 Pulse Ox 95 11/26/17 05:44 Weight: 200 lb - Exam Quality Assessment: Supplemental Oxygen (3L chronic since recent hospital discharge ) General: Alert, Oriented, Cooperative. No: Mild Distress HEENT: Conjunctiva Clear, EACs Clear, EOMI, Hearing Intact, Mucosa Moist & Alda , Nares Patent, Posterior Pharynx Clear, PERRLA Neck: Supple, Trachea Midline Lungs: Clear to Auscultation, Normal Respiratory Effort Cardiovascular: Regular Rate, Regular Rhythm GI/Abdominal Exam: Normal Bowel Sounds, Soft, Non-Tender, No Distention, No Abnormal Bruit (Female) Exam: Deferred Rectal (Female) Exam: Deferred Back Exam: Normal Inspection, Full Range of Motion Extremities: Normal Inspection, Normal Range of Motion, Non-Tender, No Pedal Edema, Normal Capillary Refill Peripheral Pulses: 3+: Radial (L), Radial (R), Dorsalis Pedis (L), Dorsalis Pedis (R) Skin: Warm, Dry, Intact Neurological: Cranial Nerves Intact (grossly ) Neuro Extensive - Mental Status: Alert, Oriented x3, Normal Mood/Affect, Normal Cognition, Memory Intact - Patient Data Lab Results Last 24 hrs: Laboratory Results - last 24 hr 11/26/17 11/26/17 11/26/17 Range/Units 05:55 05:55 05:55 WBC 4.89 (3.98-10.04) K/mm3 RBC 2.33 L (3.98-5.22) M/mm3 Hgb 6.3 L* (11.2-15.7) gm/L Hct 21.2 L (34.1-44.9) % MCV 91.0 (79.4-94.8) fl MCH 27.0 (25.6-32.2) pg MCHC 29.7 L (32.2-35.5) g/dl RDW Std Deviation 57.9 H (36.4-46.3) fL Plt Count 275 (182-369) K/mm3 MPV 10.2 (9.4-12.3) fl Neutrophils % (Manual) 68 H (40-60) % Band Neutrophils % 0 (0-10) % Lymphocytes % (Manual) 28 (20-40) % Atypical Lymphs % 1 % Monocytes % (Manual) 3 (2-10) % Eosinophils % (Manual) 0 L (0.7-5.8) % Basophils % (Manual) 0 L (0.1-1.2) Platelet Estimate Adequate Plt Morphology Comment Normal Hypochromasia 1+ slight Poikilocytosis 2+ moderate Basophilic Stippling 1+ slight Anisocytosis 2+ moderate Microcytosis 1+ slight Macrocytosis 1+ slight Ovalocytes 1+ slight RBC Morph Comment Abnormal Percent Retic (0.50-1.70) % Sodium 136 (136-145) mEq/L Potassium 4.4 (3.5-5.1) mEq/L Chloride 104 (98-107) mEq/L Carbon Dioxide 28 (21-32) mEq/L Anion Gap 8.4 (5-15) BUN 19 H (7-18) mg/dL Creatinine 1.3 H (0.55-1.02) mg/dL Est Cr Clr Drug Dosing 23.01 mL/min Estimated GFR (MDRD) 39 (>60) mL/min BUN/Creatinine Ratio 14.6 (14-18) Glucose 148 H (83-115) mg/dL POC Glucose (83-110) mg/dL Calcium 9.9 (8.5-10.1) mg/dL Total Bilirubin 0.3 (0.2-1.0) mg/dL AST 31 (15-37) U/L ALT 31 (14-59) U/L Alkaline Phosphatase 107 (46-116) U/L Lactate Dehydrogenase 209 (81-234) U/L Troponin I < 0.017 (0.00-0.056) ng/mL Total Protein 6.9 (6.4-8.2) g/dl Albumin 2.7 L (3.4-5.0) g/dl Globulin 4.2 gm/dL Albumin/Globulin Ratio 0.6 L (1-2) Lipase 119 (73-393) U/L 11/26/17 11/26/17 Range/Units 05:55 05:57 WBC (3.98-10.04) K/mm3 RBC (3.98-5.22) M/mm3 Hgb (11.2-15.7) gm/L Hct (34.1-44.9) % MCV (79.4-94.8) fl MCH (25.6-32.2) pg MCHC (32.2-35.5) g/dl RDW Std Deviation (36.4-46.3) fL Plt Count (182-369) K/mm3 MPV (9.4-12.3) fl Neutrophils % (Manual) (40-60) % Band Neutrophils % (0-10) % Lymphocytes % (Manual) (20-40) % Atypical Lymphs % % Monocytes % (Manual) (2-10) % Eosinophils % (Manual) (0.7-5.8) % Basophils % (Manual) (0.1-1.2) Platelet Estimate Plt Morphology Comment Hypochromasia Poikilocytosis Basophilic Stippling Anisocytosis Microcytosis Macrocytosis Ovalocytes RBC Morph Comment Percent Retic 1.97 H (0.50-1.70) % Sodium (136-145) mEq/L Potassium (3.5-5.1) mEq/L Chloride (98-107) mEq/L Carbon Dioxide (21-32) mEq/L Anion Gap (5-15) BUN (7-18) mg/dL Creatinine (0.55-1.02) mg/dL Est Cr Clr Drug Dosing mL/min Estimated GFR (MDRD) (>60) mL/min BUN/Creatinine Ratio (14-18) Glucose (83-115) mg/dL POC Glucose 137 H (83-110) mg/dL Calcium (8.5-10.1) mg/dL Total Bilirubin (0.2-1.0) mg/dL AST (15-37) U/L ALT (14-59) U/L Alkaline Phosphatase (46-116) U/L Lactate Dehydrogenase (81-234) U/L Troponin I (0.00-0.056) ng/mL Total Protein (6.4-8.2) g/dl Albumin (3.4-5.0) g/dl Globulin gm/dL Albumin/Globulin Ratio (1-2) Lipase (73-393) U/L Result Diagrams: 11/26/17 05:55 11/26/17 05:55 - Problem List (1) Severe anemia SNOMED Code(s): 783099119 ICD Code: D64.9 - ANEMIA, UNSPECIFIED Status: Acute Priority: High Current Visit: Yes (2) HLD (hyperlipidemia) SNOMED Code(s): 81643913 ICD Code: E78.5 - HYPERLIPIDEMIA, UNSPECIFIED Status: Chronic Priority: Low Current Visit: No Qualifiers: Hyperlipidemia type: unspecified Qualified Code(s): E78.5 - Hyperlipidemia , unspecified (3) HTN (hypertension) SNOMED Code(s): 92144901 ICD Code: I10 - ESSENTIAL (PRIMARY) HYPERTENSION Status: Chronic Priority : Medium Current Visit: No (4) GERD (gastroesophageal reflux disease) SNOMED Code(s): 161713054 ICD Code: K21.9 - GASTRO-ESOPHAGEAL REFLUX DISEASE WITHOUT ESOPHAGITIS Status: Chronic Priority: Low Current Visit: No Qualifiers: Esophagitis presence: esophagitis presence not specified Qualified Code(s) : K21.9 - Gastro-esophageal reflux disease without esophagitis (5) CRI (chronic renal insufficiency) SNOMED Code(s): 622816893 ICD Code: N18.9 - CHRONIC KIDNEY DISEASE, UNSPECIFIED Status: Chronic Priority: Medium Current Visit: Yes Qualifiers: Chronic kidney disease stage: unspecified stage Qualified Code(s): N18.9 - Chronic kidney disease, unspecified (6) Arthritis SNOMED Code(s): 4563808 ICD Code: M19.90 - UNSPECIFIED OSTEOARTHRITIS, UNSPECIFIED SITE Status: Chronic Priority: Low Current Visit: No (7) Chronic back pain SNOMED Code(s): 405938303 ICD Code: M54.9 - DORSALGIA, UNSPECIFIED; G89.29 - OTHER CHRONIC PAIN Status: Chronic Priority: Low Current Visit: No Qualifiers: Back pain location: back pain in unspecified location Back pain laterality : unspecified Qualified Code(s): M54.9 - Dorsalgia, unspecified; G89.29 - Other chronic pain (8) Chest pain SNOMED Code(s): 32943565 ICD Code: R07.9 - CHEST PAIN, UNSPECIFIED Status: Acute Priority: High Current Visit: Yes Qualifiers: Chest pain type: unspecified Qualified Code(s): R07.9 - Chest pain, unspecified Problem List Initiated/Reviewed/Updated: Yes Orders Last 24hrs: Active Orders 24 hr Category Date Time Status Admission Status [Patient Status] [ADT] Routine ADT 11/26/17 07:17 Active EKG Documentation Completion [RC] STAT Care 11/26/17 06:00 Active Verify Patient Consent Obtain [RC] ASDIRECTED Care 11/26/17 07:33 Active FE, TIBC, TRANSFERRIN, FE SAT [CHEM] Stat Lab 11/26/17 05:55 Received FERRITIN [CHEM] Stat Lab 11/26/17 05:55 Received FOLIC ACID [CHEM] Stat Lab 11/26/17 05:55 Received PACKED CELLS [RED BLOOD CELLS LP] [BBK] Routine Lab 11/26/17 05:55 Received TYPE AND SCREEN [BBK] Stat Lab 11/26/17 05:55 Received VITAMIN B12 [CHEM] Stat Lab 11/26/17 05:55 Received Sodium Chloride 0.9% [Normal Saline] 1,000 ml Med 11/26/17 07:45 Active IV ASDIRECTED Peripheral IV Insertion Adult [OM.PC] Urgent Oth 11/26/17 07:32 Ordered Transfuse PRBC [Transfuse Red Blood Cells] [COMM] Stat Oth 11/26/17 06:56 Ordered Transfuse Red Blood Cells [COMM] Stat Oth 11/26/17 07:32 Ordered Medication Orders Sodium Chloride (Normal Saline) 1,000 mls @ 125 mls/hr IV ASDIRECTED [facility] Assessment/Plan Comment:: I/P: Acute: Anemia -Came to ED with chest pain and was found to be very anemic -Family reports several prior severe nosebleeds - Patient reports this has improved to resolved since admission to [facility] -Hgb 6.3 in ED -Hct 21.2 in ED -2 units ordered and transfusing -Repeat Hgb tonight at 1800 -Lasix 20mg after each unit -Iron Panel: Iron 28, TIBC 298, % saturation 9, Tranferrin 238 -Folate 18.7 -B12 934 Chest pain - resolved -Presented to ED with chest pain which is reproducible -Given nitro x3 at [facility] which did not help; followed by pepto-bismol which improved symptoms -Many prior ED visits in past for similar symptoms -Troponin negative -History of IN per per old notes however patient denies prior IN, stents, CAGB, etc. -Pain reproducible with chest pressure -None currently on floor S/P hospital discharge for PNA -Reports she was discharged recently (weeks) from [facility] for PNA after 5 day stay -CXR 11/26/17 shows increasing density within left lung base most likely representing pneumonia -Denies fever or cold-like symptoms -Reports minor cough which has been improving since discharge -No leukocytosis, CRP 1.3 -Reports started on 3L O2 at hospital discharge - was not wearing O2 before admission -Obtain old records Chronic: HLD HTN GERD Hiatal hernia CKD Arthritis Chronic Back Pain Anxiety Depression Fibromyalgia Obesity Plan: Admit to medical floor on telemetry Routine AM labs SW for discharge planning - From [facility] Home meds as ordered SCDs for DVT prophylaxis Hold PO lasix - start 40mg IVP daily Hold ACEI GI Prophylaxis: Home PPI PT/OT Spiritual care consult Code status: Full code; PCP: Dr. Sharma
[2017-11-26] MEDS ORDERED: Ondansetron 4 MG/2 ML SDV IV PRN (11:34)
[2017-11-26] MEDS ORDERED: Ondansetron 4 MG Tab.DIS PO PRN (11:34)
[2017-11-26] MEDS ORDERED: Acetaminophen 325 MG Tab PO PRN (11:34)
[2017-11-26] MEDS ORDERED: hydrALAZINE 20 MG/ML SDV IVPUSH PRN (11:38)
[2017-11-26] MEDS ORDERED: Metoprolol Tartrate 5 MG/5 ML SDV IVPUSH PRN (11:38)
[2017-11-26] MEDS ORDERED: Furosemide 20 MG/2 ML VIAL IVPUSH SCH ×3 (13:00→16:30)
[2017-11-26] MEDS ORDERED: Sodium Chloride 0.9% 250 ML IV SCH (13:30)
[2017-11-26] MEDS ORDERED: Gabapentin 100 MG Cap PO PRN (16:27)
[2017-11-26] MEDS ORDERED: Albuterol 0.083% 2.5 MG/3 ML Neb Soln NEB PRN (16:27)
[2017-11-26] MEDS ORDERED: Benzonatate 100 MG Cap PO PRN (16:27)
[2017-11-26] MEDS ORDERED: Docusate Sodium 100 MG Cap PO PRN (16:27)
[2017-11-26] MEDS ORDERED: Acetaminophen/HYDROcodone 325-5 MG Tab PO PRN (16:27)
[2017-11-26] MEDS ORDERED: TRIAMCINOLONE ACETONIDE TOP PRN (16:27)
[2017-11-26] MEDS ORDERED: Nitroglycerin 0.4 MG Tab.SL SL PRN (16:27)
[2017-11-26] MEDS ORDERED: Gabapentin 100 MG Cap PO SCH (18:00)
[2017-11-27] MEDS ORDERED: Pantoprazole 40 MG Tab.CR PO SCH (06:00)
[2017-11-27] MEDS ORDERED: Polyethylene Glycol 3350 Powder 17 GM Packet PO SCH (09:00)
[2017-11-27] MEDS ORDERED: Aspirin 81 MG Tab.EC PO SCH (09:00)
[2017-11-27] MEDS ORDERED: Isosorbide Mononitrate 30 MG Tab.ER PO SCH (09:00)
[2017-11-27] MEDS ORDERED: Multivitamins,Therapeutic Tab PO SCH (09:00)
[2017-11-27] MEDS ORDERED: TRAVOPROST SCH (09:00)
[2017-11-27] MEDS ORDERED: Metoprolol Succinate 50 MG Tab.ER PO SCH (09:00)
[2017-11-27] MEDS ORDERED: Furosemide 40 MG/4 ML VIAL IVPUSH SCH (09:00)
[2017-11-27] MEDS ORDERED: Lactulose Soln 10 GM/15 ML 30 ML UD Cup PO SCH (09:00)
[2017-11-27] MEDS ORDERED: Witch Hazel Medicated Pads 100/Jar TOP SCH (09:00)
[2017-11-27] MEDS ORDERED: Mirabegron [Myrbetriq] 50 MG PO SCH (09:00)
[2017-11-27] MEDS ORDERED: Simvastatin 20 MG Tab PO SCH (09:00)
[2017-11-27] MEDS ORDERED: Iron Polysaccharides Complex 150 MG Cap PO SCH (09:45)
--- NOTE | 2017-11-27 10:07 | PCM.DCSUM1 ---
Discharge Summary - Hospital Course HPI Initial Comments: Arlene Swenson is an 87 yo female who presents to our ED early this AM with retrosternal chest pain which began around 450 this morning. His reportedly will herself around [place] [address] in a wheelchair when the pain started. She describes it as a pressure which came on suddenly and does not radiate. She states she felt lightheaded but denies nausea or sense of impending doom. Unsure if she's been dyspneic or diaphoretic. She is given 3 nitroglycerin 5 minutes apart and Pepto-Bismol which reportedly improved her pain. In the ED pain was rated for a 10 initially, however quickly resolved. She reports she's had similar symptoms in the past. Prior records indicate a history of AR. She believes her nitroglycerine was prescribed by her PCP and denies seeing a application software developer. In the ED temp was 36.9 Celsius. Pulse 80. Respirations 14. BP 124/46. Pulse ox 95%. Total EKG was obtained and interpreted by the ED provider as normal sinus rhythm at 79 bpm with LVH. Labs are obtained: WBC is 4.89. RBC 2.33. Hemoglobin very low at 6.3. Hematocrit 21.2. She was normocytic. Platelets are normal at 275,000. Neutrophils are elevated at 60%. There is no bandemia. Sodium was good at 136. Potassium 4.4. Chloride 104. Conducted 28. Anion gap 8.4. BUN is high at 19. Creatinine 1.3. EGFR is 39. Glucose is high at 148. Calcium 9.9. Bilirubin 0.3. Liver enzymes looked good with AST at 31, ALT of 31, alkaline phosphatase at 107. Troponin is negative at less than 0.017. Protein is 2.9. Albumin is low at 2.7. Chest x-rays obtained and interpreted by Dr. Navarro as 1. increased density within the left lung base most likely representing pneumonia. 2. Other incidental findings. Rectal exam was performed and showed brown heme negative stool. Anemia workup including LDH, iron, ferritin, TIBC, transferrin, percent saturation, reticulocyte count, folic acid level, and B12 level has been obtained and is pending. Type and screen was performed (she is o Positive, negative antibodies ) and 2 units PRBCs infusing. She carries a history of HLD, HTN, spontaneous 3 L O2 use, GERD, hiatal hernia, chronic renal insufficiency, arthritis, chronic back pain, anxiety, depression, fibromyalgia, obesity. She was never a smoker. She is a full code. Her PCP is Dr. Sharma. She is subsequently admitted to the [facility] floor on telemetry. Diagnosis: Stroke: No - Discharge Data Discharge Date: 11/27/17 (Admit date: 11/26/17) Discharge Disposition: Home, Self-Care 01 Condition: Good - Discharge Diagnosis/Problem(s) (1) Severe anemia SNOMED Code(s): 395995409 ICD Code: D64.9 - ANEMIA, UNSPECIFIED Status: Resolved Priority: High Current Visit: Yes (2) HLD (hyperlipidemia) SNOMED Code(s): 20255771 ICD Code: E78.5 - HYPERLIPIDEMIA, UNSPECIFIED Status: Chronic Priority: Low Current Visit: No Qualifiers: Hyperlipidemia type: unspecified Qualified Code(s): E78.5 - Hyperlipidemia , unspecified (3) HTN (hypertension) SNOMED Code(s): 88546481 ICD Code: I10 - ESSENTIAL (PRIMARY) HYPERTENSION Status: Chronic Priority : Medium Current Visit: No (4) GERD (gastroesophageal reflux disease) SNOMED Code(s): 679896936 ICD Code: K21.9 - GASTRO-ESOPHAGEAL REFLUX DISEASE WITHOUT ESOPHAGITIS Status: Chronic Priority: Low Current Visit: No Qualifiers: Esophagitis presence: esophagitis presence not specified Qualified Code(s) : K21.9 - Gastro-esophageal reflux disease without esophagitis (5) CRI (chronic renal insufficiency) SNOMED Code(s): 814851548 ICD Code: N18.9 - CHRONIC KIDNEY DISEASE, UNSPECIFIED Status: Chronic Priority: Medium Current Visit: Yes Qualifiers: Chronic kidney disease stage: unspecified stage Qualified Code(s): N18.9 - Chronic kidney disease, unspecified (6) Arthritis SNOMED Code(s): 4477021 ICD Code: M19.90 - UNSPECIFIED OSTEOARTHRITIS, UNSPECIFIED SITE Status: Chronic Priority: Low Current Visit: No (7) Chronic back pain SNOMED Code(s): 092283453 ICD Code: M54.9 - DORSALGIA, UNSPECIFIED; G89.29 - OTHER CHRONIC PAIN Status: Chronic Priority: Low Current Visit: No Qualifiers: Back pain location: back pain in unspecified location Back pain laterality : unspecified Qualified Code(s): M54.9 - Dorsalgia, unspecified; G89.29 - Other chronic pain (8) Chest pain SNOMED Code(s): 94711559 ICD Code: R07.9 - CHEST PAIN, UNSPECIFIED Status: Acute Priority: High Current Visit: Yes Qualifiers: Chest pain type: unspecified Qualified Code(s): R07.9 - Chest pain, unspecified (9) Iron deficiency SNOMED Code(s): 22068886 ICD Code: E61.1 - IRON DEFICIENCY Status: Acute Priority: High Current Visit: Yes - Patient Summary/Data Consults: Consultations 11/26/17 11:34 Consult to Case Management/Chicken Cleaner [CONS] Routine Consult to Spiritual Care [CONS] Routine OT Evaluation and Treatment [CONS] Routine PT Evaluation and Treatment [CONS] Routine Labs Pending at D/C: None Recommended Follow-up Testing/Procedures: Follow-up with PCP, Dr. Sharma, within 7-10 days Follow-up with Dr. Saul, general surgery, at scheduled appointment. Repeat CBC on 12/01/[address] Sharma. Hospital Course: I/P: Acute: Anemia -Came to ED with chest pain and was found to be very anemic -Family reports several prior severe nosebleeds - Patient reports this has improved to resolved since admission to [facility] -Hgb 6.3 in ED-->11.2 (s/p 2 units)-->11.3 -Hct 21.2 in ED-->36.1 -2 units ordered and transfusing -Negative occult stool in ED -Repeat Hgb tonight at 1800 -Lasix 20mg after each unit -Iron Panel: Iron 28, TIBC 298, % saturation 9, Tranferrin 238 -Start iron supplementation -Folate 18.7 -B12 934 Chest pain - resolved -Presented to ED with chest pain which is reproducible -Given nitro x3 at SNF which did not help; followed by pepto-bismol which improved symptoms -Many prior ED visits in past for similar symptoms -Troponin negative -History of AR per per old notes however patient denies prior AR, stents, CAGB, etc. -Pain reproducible with chest pressure -None currently on floor; none since admission S/P hospital discharge for PNA -Reports she was discharged recently (weeks) from [facility] in [place] for PNA after 5 day stay -CXR 11/26/17 shows increasing density within left lung base most likely representing pneumonia -Denies fever or cold-like symptoms -Reports minor cough which has been improving since discharge -No leukocytosis, CRP 1.3 -Reports started on 3L O2 at hospital discharge - was not wearing O2 before admission -Obtain old records- still waiting Chronic: HLD HTN GERD Hiatal hernia CKD Arthritis Chronic Back Pain Anxiety Depression Fibromyalgia Obesity Plan: Admit to medical floor on telemetry Routine AM labs SW for discharge planning - From [facility] Home meds as ordered SCDs for DVT prophylaxis Hold PO lasix - start 40mg IVP daily Hold ACEI GI Prophylaxis: Home PPI PT/OT Spiritual care consult Code status: Full code; PCP: Dr. Sharma Overall Arlene did very well. B12 and folate were WNL. Iron panel showed decreased iron and she was started on daily supplementation. She received 2 units and her Hbg responded well and held steady. In reviewing old notes she was in the ED on 11/12/17 and Hgb then was 9. She was reportedly sent to [place] for admission at [facility] there and treated for pneumonia. She has been on O2 since that discharge and should continue this. Her chest x-ray here showed a possible infiltrate however she has had no infectious symptoms and is doing well. CRP is 1.5 and there has been no Leukocytosis. She has not had a cough here but did report a cough prior which was residual from her PNA symptoms. She came in with chest pain which was reproducible. Troponin was negative and she has reportedly been worked up multiple times. She had no chest pain while here aside from brief minimal pain on palpation to her chest wall on admission. She will be discharged today back to [facility]. She reports she has been undergoing PT/OT treatment there and should continue this. Orders have given to the patient for a repeat CBC on 12/01/[address] Sharma. She should also follow-up with Dr. Saul, general surgery for further work-up and Dr. Sharma in 7- 10 days. - Patient Instructions Diet: Heart Healthy Diet Activity: As Tolerated Showering/Bathing: May Shower Notify Provider of: Fever, Increased Pain, Nausea and/or Vomiting Other/Special Instructions: -Follow-up with PCP, Dr. Sharma, within 7-10 days of discharge. -Follow-up with Dr. Saul at next available appointment. -Lab draw (CBC) on 11/30/[address] Sharma. -Take all medications as prescribed. -Start iron supplementation. A prescription was sent to your pharmacy. -Continue PT/OT at [facility] as you have been. -Continue oxygen as you have been to keep satuations above 90%. -If symptoms worsen or return, please contact your PCP of come to the ED. - Discharge Plan *PRESCRIPTION DRUG MONITORING PROGRAM REVIEWED*: No *COPY OF PRESCRIPTION DRUG MONITORING REPORT IN PATIENT LINDA: No Prescriptions/Med Rec: Iron Polysaccharides Complex [Ferrex 150] 150 mg PO DAILY #20 cap Home Medications: Home Meds Gabapentin [Neurontin] 200 mg PO BID PRN 08/31/16 [History] Metoprolol Succinate 50 mg PO DAILY 08/31/16 [History] Mirabegron [Myrbetriq] 50 mg PO DAILY 08/31/16 [History] Multivitamin [Poly-Vitamin] 1 each PO DAILY 08/31/16 [History] Omeprazole 1 tab PO DAILY 08/31/16 [History] atorvaSTATin Calcium [Atorvastatin Calcium] 20 mg PO DAILY 08/31/16 [History] Nitroglycerin 0.4 mg SL ASDIRECTED PRN #12 tab.subl 09/01/16 [Rx] Furosemide [Lasix] 20 mg PO DAILY 10/26/17 [History] Isosorbide Mononitrate [Imdur] 30 mg PO DAILY 10/26/17 [History] Losartan [Cozaar] 50 mg PO DAILY 10/26/17 [History] Acetaminophen [Pain Relief] 650 mg PO Q4HR PRN 11/08/17 [History] Docusate Sodium [Colace] 100 mg PO BID PRN 11/08/17 [History] Lactulose 30 gm PO DAILY 11/08/17 [History] Polyethylene Glycol 3350 [Miralax] 17 gm PO DAILY 11/08/17 [History] Acetaminophen/HYDROcodone [[place] 325-5 MG] 1 tab PO Q6HR PRN 11/26/17 [History] Albuterol Sulfate 2.5 mg IH Q4HR PRN 11/26/17 [History] Aspirin [Halfprin] 81 mg PO DAILY 11/26/17 [History] Benzonatate 100 mg PO Q4HR PRN 11/26/17 [History] Gabapentin [Neurontin] 200 mg PO QPM 11/26/17 [History] Travoprost [Travatan Z] 1 drop OP DAILY 11/26/17 [History] Triamcinolone Acetonide [Triamcinolone Acetonide 0.1% Oint] 1 applic TOP BID PRN 11/26/17 [History] Quin Vital [Preparation H] 1 each TP DAILY 11/26/17 [History] Iron Polysaccharides Complex [Ferrex 150] 150 mg PO DAILY #20 cap 11/27/17 [Rx] Patient Handouts: Anemia, Chest Wall Pain, [id number] Referrals: Andres Sharma MD [Primary Care Provider] - (Ensure a hospital follow-up appointment is scheduled. Ask about receiving a TDaP vaccine at follow-up appointment.) Addom-Shante Smith MD [Physician] - - Discharge Summary/Plan Comment DC Time >30 min.: Yes (45 mins ) - General Info Date of Service: 11/27/17 Admission Dx/Problem (Free Text: Admission Diagnosis/Problem Admission Diagnosis/Problem Anemia Subjective Update: In to see Arlene. She reports she feels great and has no concerns or complaints. She has not had any chest pain aside from when we press on her chest. Labs look good and Hgb is stable. In reviewing old charts her last visit prior to being transferred showed a Hgb of 9.0. We have attempted to get old records from [facility] in [place] with no success yet. No nursing concerns. She will be discharged today. Functional Status: Reports: Pain Controlled, Tolerating Diet, Ambulating, Urinating. Denies: New Symptoms - Review of Systems General: Reports: No Symptoms. Denies: Fever, Weakness, Fatigue, Malaise HEENT: Reports: No Symptoms. Denies: Eye Pain, Sore Throat Pulmonary: Reports: No Symptoms. Denies: Shortness of Breath, Cough, Sputum, Wheezing Cardiovascular: Reports: No Symptoms. Denies: Chest Pain, Palpitations Gastrointestinal: Reports: No Symptoms. Denies: Constipation, Diarrhea, Nausea , Vomiting Genitourinary: Reports: No Symptoms Musculoskeletal: Reports: No Symptoms Skin: Reports: No Symptoms Neurological: Reports: No Symptoms. Denies: Confusion Psychiatric: Reports: No Symptoms - Patient Data Vitals - Most Recent: Last Vital Signs Temp 97.2 F 11/27/17 09:14 Pulse 83 11/27/17 09:54 Resp 20 11/27/17 09:14 BP 96/49 L 11/27/17 09:54 Pulse Ox 95 11/27/17 09:14 Weight - Most Recent: 204 lb 9.6 oz I&O - Last 24 hours: Intake & Output 11/26/17 11/27/17 11/27/17 22:59 06:59 14:59 Intake Total 690 300 Output Total 1150 1300 Balance -460 -1000 Lab Results - Last 24 hrs: Laboratory Results - last 24 hr 11/26/17 11/26/17 11/26/17 Range/Units 05:55 05:55 10:45 WBC (3.98-10.04) K/mm3 RBC (3.98-5.22) M/mm3 Hgb (11.2-15.7) gm/L Hct (34.1-44.9) % MCV (79.4-94.8) fl MCH (25.6-32.2) pg MCHC (32.2-35.5) g/dl RDW Std Deviation (36.4-46.3) fL Plt Count (182-369) K/mm3 MPV (9.4-12.3) fl Neut % (Auto) (34.0-71.1) % Lymph % (Auto) (19.3-51.7) % [place] % (Auto) (4.7-12.5) % Eos % (Auto) (0.7-5.8) Baso % (Auto) (0.1-1.2) % Neut # (Auto) (1.56-6.13) K/mm3 Lymph # (Auto) (1.18-3.74) K/mm3 [place] # (Auto) (0.24-0.36) K/mm3 Eos # (Auto) (0.04-0.36) K/mm3 Baso # (Auto) (0.01-0.08) K/mm3 Sodium (136-145) mEq/L Potassium (3.5-5.1) mEq/L Chloride (98-107) mEq/L Carbon Dioxide (21-32) mEq/L Anion Gap (5-15) BUN (7-18) mg/dL Creatinine (0.55-1.02) mg/dL Est Cr Clr Drug Dosing mL/min Estimated GFR (MDRD) (>60) mL/min BUN/Creatinine Ratio (14-18) Glucose (83-115) mg/dL Calcium (8.5-10.1) mg/dL Magnesium (1.8-2.4) mg/dl C-Reactive Protein 1.5 H* (<1.0) mg/dL MRSA (PCR) Negative Blood Type O POSITIVE Gel Antibody Screen Negative Crossmatch See Detail 11/26/17 11/27/17 11/27/17 Range/Units 18:32 05:33 05:33 WBC 7.43 (3.98-10.04) K/mm3 RBC 4.07 (3.98-5.22) M/mm3 Hgb 11.2 11.3 (11.2-15.7) gm/L Hct 36.1 (34.1-44.9) % MCV 88.7 (79.4-94.8) fl MCH 27.8 (25.6-32.2) pg MCHC 31.3 L (32.2-35.5) g/dl RDW Std Deviation 55.3 H (36.4-46.3) fL Plt Count 450 H (182-369) K/mm3 MPV 9.9 (9.4-12.3) fl Neut % (Auto) 62.4 (34.0-71.1) % Lymph % (Auto) 27.1 (19.3-51.7) % [place] % (Auto) 9.6 (4.7-12.5) % Eos % (Auto) 0.1 L (0.7-5.8) Baso % (Auto) 0.3 (0.1-1.2) % Neut # (Auto) 4.64 (1.56-6.13) K/mm3 Lymph # (Auto) 2.01 (1.18-3.74) K/mm3 [place] # (Auto) 0.71 H (0.24-0.36) K/mm3 Eos # (Auto) 0.01 L (0.04-0.36) K/mm3 Baso # (Auto) 0.02 (0.01-0.08) K/mm3 Sodium 140 (136-145) mEq/L Potassium 3.8 (3.5-5.1) mEq/L Chloride 105 (98-107) mEq/L Carbon Dioxide 30 (21-32) mEq/L Anion Gap 8.8 (5-15) BUN 15 (7-18) mg/dL Creatinine 1.2 H (0.55-1.02) mg/dL Est Cr Clr Drug Dosing 24.92 mL/min Estimated GFR (MDRD) 42 (>60) mL/min BUN/Creatinine Ratio 12.5 L (14-18) Glucose 130 H (83-115) mg/dL Calcium 9.8 (8.5-10.1) mg/dL Magnesium 2.0 (1.8-2.4) mg/dl C-Reactive Protein (<1.0) mg/dL MRSA (PCR) Blood Type Gel Antibody Screen Crossmatch Med Orders - Current: Current Medications Acetaminophen (Tylenol) 650 mg PO Q4H PRN PRN Reason: Pain (Mild 1-3)/fever Hydrocodone Bitart/Acetaminophen ([place] 325-5 Mg) 1 tab PO Q6HR PRN PRN Reason: Pain Albuterol (Proventil Neb Soln) 2.5 mg NEB Q4HR PRN PRN Reason: Wheezing Aspirin (Halfprin) 81 mg PO DAILY [facility] Last Admin: 11/27/17 09:42 Dose: 81 mg Benzonatate (Tessalon Perles) 100 mg PO Q4HR PRN PRN Reason: Cough Docusate Sodium (Colace) 100 mg PO BID PRN PRN Reason: Constipation Furosemide (Lasix) 40 mg IVPUSH DAILY [facility] Last Admin: 11/27/17 09:46 Dose: 40 mg Gabapentin (Neurontin) 200 mg PO QPM [facility] Last Admin: 11/26/17 18:12 Dose: 200 mg Gabapentin (Neurontin) 200 mg PO BID PRN PRN Reason: Pain Hydralazine HCl (Apresoline) 20 mg IVPUSH Q4H PRN PRN Reason: Hypertension Isosorbide Mononitrate (Imdur) 30 mg PO DAILY [facility] Last Admin: 11/27/17 09:40 Dose: 30 mg Lactulose (Cephulac) 30 gm PO DAILY [facility] Last Admin: 11/27/17 09:31 Dose: 30 gm Metoprolol Succinate (Toprol Xl) 50 mg PO DAILY [facility] Last Admin: 11/27/17 09:54 Dose: 50 mg Metoprolol Tartrate (Lopressor) 5 mg IVPUSH Q4H PRN PRN Reason: Tachycardia Multivitamins (Thera) 1 each PO DAILY [facility] Last Admin: 11/27/17 09:35 Dose: 1 each Nitroglycerin (Nitrostat) 0.4 mg SL ASDIRECTED PRN PRN Reason: Chest Pain Ondansetron HCl (Zofran Odt) 4 mg PO Q6H PRN PRN Reason: nausea, able to take PO Ondansetron HCl (Zofran) 4 mg IV Q6H PRN PRN Reason: Nausea/Vomiting Pantoprazole Sodium (Protonix) 40 mg PO ACBREAKFAST [facility] Last Admin: 11/27/17 05:14 Dose: 40 mg Mirabegron [ (Myrbetriq] 50 Mg) 0 each PO DAILY [facility] Travoprost [Travatan (Z] 1 Drop Ptom) 1 each .XX DAILY [facility] Triamcinolone Acetonide 1 Applic * *Ptom 0 each TOP BID PRN PRN Reason: apply to L arm lesion Polyethylene Glycol (Miralax) 17 gm PO DAILY [facility] Last Admin: 11/27/17 09:29 Dose: 17 gm Polysaccharide Iron Complex (Ferrex 150) 150 mg PO DAILY [facility] Simvastatin (Zocor) 20 mg PO DAILY [facility] Last Admin: 11/27/17 09:36 Dose: 20 mg Witch Zahraa (Tucks) 1 pad TOP DAILY [facility] Discontinued Medications Furosemide (Lasix) 20 mg IVPUSH DAILY [facility] Furosemide (Lasix) 20 mg IVPUSH DAILY [facility] Stop: 11/26/17 14:01 Last Admin: 11/26/17 16:33 Dose: 20 mg Furosemide (Lasix) 20 mg IVPUSH DAILY [facility] Stop: 11/26/17 13:01 Last Admin: 11/26/17 12:38 Dose: 20 mg Furosemide (Lasix) 20 mg IVPUSH DAILY@1430 [facility] Stop: 11/26/17 16:31 Last Admin: 11/26/17 16:57 Dose: Not Given Sodium Chloride (Normal Saline) 1,000 mls @ 125 mls/hr IV ASDIRECTED [facility] Last Admin: 11/26/17 10:07 Dose: 125 mls/hr Sodium Chloride (Normal Saline) 250 mls @ 250 mls/hr IV ASDIRECTED [facility] Last Admin: 11/26/17 13:36 Dose: 250 mls/hr - Exam Quality Assessment: Reports: Supplemental Oxygen (chronic ), DVT Prophylaxis General: Reports: Alert, Oriented, Cooperative, No Acute Distress HEENT: Reports: Pupils Equal, Pupils Reactive, EOMI, Mucous Membr. Moist/[place] Neck: Reports: Supple, Trachea Midline Lungs: Reports: Clear to Auscultation, Normal Respiratory Effort Cardiovascular: Reports: Regular Rate, Regular Rhythm GI/Abdominal Exam: Normal Bowel Sounds, Soft, Non-Tender, No Distention, No Abnormal Bruit (Female) Exam: Deferred Rectal (Female) Exam: Deferred Back Exam: Reports: Normal Inspection, Full Range of Motion Extremities: Normal Inspection, Normal Range of Motion, Non-Tender, No Pedal Edema, Normal Capillary Refill Skin: Reports: Warm, Dry, Intact Neurological: Reports: No New Focal Deficit Psy/Mental Status: Reports: Alert, Normal Affect, Normal Mood
[2017-11-27] MEDS ORDERED: Furosemide 20 MG/2 ML VIAL IVPUSH SCH (13:00)
[2017-11-27 16:07] VITALS: BP 108/56
== END 2017-11-27 15:56 | disposition home or self-care (01) | DRG 812 ==
LOC: JD.ED 05:43 → JD.MS 07:23
PROVIDERS: ADMIT Internal Medicine Cardiovascular Disease; ATTEND Internal Medicine Cardiovascular Disease
PROC: 30233N1 Transfusion of Nonautologous Red Blood Cells into Peripheral Vein, Percutaneous Approach (ICD-10-PCS; principal; 2017-11-26)
DX: D64.9 Anemia, unspecified (principal); E78.00 Pure hypercholesterolemia, unspecified; K21.9 Gastro-esophageal reflux disease without esophagitis; I12.9 Hypertensive chronic kidney disease with stage 1 through stage 4 chronic kidney disease, or unspecified chronic kidney disease; N18.9 Chronic kidney disease, unspecified; M19.90 Unspecified osteoarthritis, unspecified site; F41.9 Anxiety disorder, unspecified; F32.9 Major depressive disorder, single episode, unspecified; E66.9 Obesity, unspecified; M79.7 Fibromyalgia; G89.29 Other chronic pain; M54.9 Dorsalgia, unspecified; H40.9 Unspecified glaucoma; H54.7 Unspecified visual loss; Z91.041 Radiographic dye allergy status; Z99.81 Dependence on supplemental oxygen; Z79.899 Other long term (current) drug therapy; Z79.82 Long term (current) use of aspirin; R42 Dizziness and giddiness; Z68.37 Body mass index [BMI] 37.0-37.9, adult; I25.2 Old myocardial infarction; E78.5 Hyperlipidemia, unspecified; R07.9 Chest pain, unspecified; K44.9 Diaphragmatic hernia without obstruction or gangrene; E61.1 Iron deficiency
CPT/HCPCS: 36415; 36430; 71045; 71045-26; 80048; 80053; 82607; 82728; 82746; 82962; 83540; 83615; 83690; 83735; 84466; 84484; 85007; 85018; 85025; 85027; 85045; 86140; 86850; 86900; 86901; 86922; 87641; 93005; 93010; 94760; 97161-GP; 97165-GO; 99285-25; A9270-GY; J1940; J7040; J7050; P9016

== ENCOUNTER 2017-11-28 12:30 | Emergency (ER) | payer MEDICARE, OTHER, MEDICAID ==
[2017-11-28 12:39] VITALS: BP 104/66
[2017-11-28] MEDS ORDERED: Sodium Chloride 0.9% 10 ML Syringe FLUSH PRN (12:50)
--- NOTE | 2017-11-28 13:36 | CR ---
Chest: Portable view of the chest was obtained. Comparison: Prior chest x-ray from 11/26/17. Parenchymal density is noted within the left lung base. This appears without significant change from previous exam. Lungs otherwise are clear. Heart size and mediastinum are stable. Bony structures are grossly intact. Impression: 1. Continuing parenchymal density within left lung base appears fairly similar to most recent study. 2. Portable chest x-ray is otherwise unremarkable. Diagnostic code #3
--- NOTE | 2017-11-28 14:22 | US ---
Limited abdominal ultrasound: Multiple real-time images of the upper right abdomen were obtained. Technologist's note: Difficult scan was suboptimal images Liver shows no discrete abnormality. Right kidney is somewhat small measuring 8.1 cm in length without hydronephrosis. Pancreas is incompletely seen. Visualized portions of the pancreas appear within normal limits. Gallbladder shows no shadowing gallstones. No gallbladder wall thickening is seen. Common bile duct not seen. Impression: 1. Small right kidney at 8.1 cm. 2. No additional abnormality is definitely seen on right upper quadrant abdominal ultrasound. Diagnostic code #2
--- NOTE | 2017-11-28 14:30 | EDM.PDOC ---
ED HPI GENERAL MEDICAL PROBLEM - General Chief Complaint: Chest Pain Stated Complaint: [facility] Time Seen by Provider: 11/28/17 12:39 Source of Information: Reports: Patient, Old Records History Limitations: Reports: No Limitations - History of Present Illness INITIAL COMMENTS - FREE TEXT/NARRATIVE: 87-year-old female arrives via [facility] for evaluation and treatment of chest pain. Patient reports the chest pain is retrosternal and describes it as a pressure. She reports some radiation to her neck but none into her arms or back. She states that the chest pain started while she was sitting at the breakfast table, unsure what time this was. She could does not recall if she had started eating when the chest pain started. She was given 3 sublingual nitroglycerin by [facility] nursing staff. This did drop her pressure to systolic of upper 80s, low 90s. She states that this time she is chest pain-free. She states she has been coughing slightly. Reports no shortness of breath, lightheadedness, dizziness or abdominal pain. Reviewed the patient's records show this is the fourth visit to the for chest pain. She was sent to [facility] on November 12 for pneumonia. Reviewed records show that she states there 5 days and was discharged home. She was seen on the Nov for chest pain. Admitted for patient for chest pain rule otu, discharged home yesterday. She has found be quite anemic with a hemoglobin in the sixes. Hemoccult was negative. She has been instructed to follow-up with general surgery. Started on iron supplementation. Patient is a full code. Primary care provider is Dr. Sharma. 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 Right Knee Pain Score (Numeric/FACES): 5 - Related Data Allergies Allergy/AdvReac Type Severity Reaction Status Date / Time Iodinated Contrast- Oral and Allergy unknown Verified 11/26/17 10:15 IV Dye contrast dye Allergy Cough Uncoded 11/26/17 05:48 Home Meds: Home Meds Gabapentin [Neurontin] 200 mg PO BID PRN 08/31/16 [History] Metoprolol Succinate 50 mg PO DAILY 08/31/16 [History] Mirabegron [Myrbetriq] 50 mg PO DAILY 08/31/16 [History] Multivitamin [Poly-Vitamin] 1 each PO DAILY 08/31/16 [History] Omeprazole 40 mg PO DAILY 08/31/16 [History] atorvaSTATin Calcium [Atorvastatin Calcium] 20 mg PO BEDTIME 08/31/16 [History] Nitroglycerin 0.4 mg SL ASDIRECTED PRN #12 tab.subl 09/01/16 [Rx] Furosemide [Lasix] 20 mg PO DAILY 10/26/17 [History] Isosorbide Mononitrate [Imdur] 30 mg PO DAILY 10/26/17 [History] Losartan [Cozaar] 50 mg PO DAILY 10/26/17 [History] Acetaminophen [Pain Relief] 650 mg PO Q4HR PRN 11/08/17 [History] Docusate Sodium [Colace] 100 mg PO BID PRN 11/08/17 [History] Lactulose 30 gm PO DAILY 11/08/17 [History] Polyethylene Glycol 3350 [Miralax] 17 gm PO DAILY 11/08/17 [History] Acetaminophen/HYDROcodone [[place] 325-5 MG] 5 - 325 mg PO Q6HR PRN 11/26/17 [ History] Albuterol Sulfate 2.5 mg IH Q4HR PRN 11/26/17 [History] Aspirin [Halfprin] 81 mg PO DAILY 11/26/17 [History] Benzonatate 100 mg PO Q4HR PRN 11/26/17 [History] Gabapentin [Neurontin] 200 mg PO BEDTIME 11/26/17 [History] Travoprost [Travatan Z] 1 drop EYEBOTH BEDTIME 11/26/17 [History] Triamcinolone Acetonide [Triamcinolone Acetonide 0.1% Oint] 1 applic TOP BID PRN 11/26/17 [History] Witch Zahraa [Preparation H] 1 each TP DAILY 11/26/17 [History] Iron Polysaccharides Complex [Ferrex 150] 150 mg PO DAILY #20 cap 11/27/17 [Rx] Past Medical History HEENT History: Reports: Cataract, Glaucoma, Impaired Vision Cardiovascular History: Reports: High Cholesterol, Hypertension Other Cardiovascular History: cardiolyte stress test scheduled for 09/04/16 Respiratory History: Reports: Other (See Below) Other Respiratory History: Wears home oxygen Gastrointestinal History: Reports: GERD, Hiatal Hernia Genitourinary History: Reports: Chronic Renal Insuffiency, Other (See Below) RN 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: Reports: Musculoskeletal History: Reports: Arthritis, Back Pain, Chronic Psychiatric History: Reports: Anxiety, Depression, Other (See Below) Endocrine/Metabolic History: Reports: Obesity/BMI 30+ Other Dermatologic History: dry skin - Past Surgical History HEENT Surgical History: Reports: Cataract Surgery Social & Family History - Family History Family Medical History: Noncontributory - Tobacco Use Smoking Status *Q: Never Smoker Second Hand Smoke Exposure: No - Caffeine Use Caffeine Use: Reports: Coffee Other Caffeine Use: 2 cups a day - Recreational Drug Use Recreational Drug Use: No - Living Situation & Occupation Living situation: Reports: , Extended Care Facility ([facility]) Occupation: Retired ED ROS GENERAL - Review of Systems Review Of Systems: See Below HEENT: Reports: Nosebleed (this am) Respiratory: Reports: Cough (improving). Denies: Shortness of Breath Cardiovascular: Reports: Chest Pain (currently chest pain free at this time) GI/Abdominal: Denies: Abdominal Pain, Nausea, Vomiting ED EXAM, GENERAL - Physical Exam Exam: See Below Exam Limited By: No Limitations General Appearance: Alert, WD/WN, No Apparent Distress Throat/Mouth: Normal Inspection, Normal Voice, No Airway Compromise Respiratory/Chest: No Respiratory Distress, Lungs Clear, Normal Breath Sounds Cardiovascular: Normal Peripheral Pulses, Regular Rate, Rhythm, No Murmur, Other (1+pitting edema) GI/Abdominal: Normal Bowel Sounds, Soft, Non-Tender, Other (negative murphys sign) Neurological: Alert, Oriented, Normal Cognition Psychiatric: Normal Affect, Normal Mood Skin Exam: Warm, Dry, Normal Color EKG INTERPRETATION EKG Date: 11/28/17 Time: 12:42 Rhythm: NSR Rate (Beats/Min): 87 [place]: Normal P-Wave: Present QRS: Normal ST-T: Normal QT: Normal EKG Interpretation Comments: Normal sinus rhythm at 87 bpm. No ischemic changes. No left axis deviation. Positive left ventricular hypertrophy. No interventricular conduction delays. QTC within normal limits at 438. Reviewed by myself and Dr. Lua. Course - Vital Signs Last Recorded V/S: Last Vital Signs Temp 98.1 F 11/28/17 12:34 Pulse 86 11/28/17 12:34 Resp 18 11/28/17 12:34 BP 104/66 11/28/17 12:34 Pulse Ox 88 L 11/28/17 12:34 - Orders/Labs/Meds Orders: Active Orders 24 hr Category Date Time Status Cardiac Monitoring [RC] . DIRECTED Care 11/28/17 12:52 Active EKG 12 Lead [EKG Documentation Completion] [RC] STAT Care 11/28/17 12:40 Active Peripheral IV Care [RC] . DIRECTED Care 11/28/17 12:51 Active Peripheral IV Insertion Adult [OM.PC] Routine Oth 11/28/17 12:50 Ordered Labs: Laboratory Tests 11/28/17 11/28/17 11/28/17 Range/Units 13:17 13:17 13:17 WBC 13.21 H (3.98-10.04) K/mm3 RBC 4.26 (3.98-5.22) M/mm3 Hgb 11.8 (11.2-15.7) gm/L Hct 38.5 (34.1-44.9) % MCV 90.4 (79.4-94.8) fl MCH 27.7 (25.6-32.2) pg MCHC 30.6 L (32.2-35.5) g/dl RDW Std Deviation 56.9 H (36.4-46.3) fL Plt Count 417 H (182-369) K/mm3 MPV 9.9 (9.4-12.3) fl Neut % (Auto) 87.4 H (34.0-71.1) % Lymph % (Auto) 6.8 L (19.3-51.7) % [place] % (Auto) 5.0 (4.7-12.5) % Eos % (Auto) 0.3 L (0.7-5.8) Baso % (Auto) 0.2 (0.1-1.2) % Neut # (Auto) 11.55 H (1.56-6.13) K/mm3 Lymph # (Auto) 0.90 L (1.18-3.74) K/mm3 [place] # (Auto) 0.66 H (0.24-0.36) K/mm3 Eos # (Auto) 0.04 (0.04-0.36) K/mm3 Baso # (Auto) 0.02 (0.01-0.08) K/mm3 Manual Slide Review Normal smear Sodium 139 (136-145) mEq/L Potassium 4.2 (3.5-5.1) mEq/L Chloride 104 (98-107) mEq/L Carbon Dioxide 32 (21-32) mEq/L Anion Gap 7.2 (5-15) BUN 24 H (7-18) mg/dL Creatinine 1.4 H (0.55-1.02) mg/dL Est Cr Clr Drug Dosing 27.53 mL/min Estimated GFR (MDRD) 36 (>60) mL/min BUN/Creatinine Ratio 17.1 (14-18) Glucose 164 H (83-115) mg/dL Calcium 10.1 (8.5-10.1) mg/dL Total Bilirubin 0.8 (0.2-1.0) mg/dL GGT 12 (5-55) U/L AST 32 (15-37) U/L ALT 29 (14-59) U/L Alkaline Phosphatase 105 (46-116) U/L Troponin I < 0.017 (0.00-0.056) ng/mL C-Reactive Protein 3.0 H* (<1.0) mg/dL Total Protein 7.5 (6.4-8.2) g/dl Albumin 2.8 L (3.4-5.0) g/dl Globulin 4.7 gm/dL Albumin/Globulin Ratio 0.6 L (1-2) Lipase 89 (73-393) U/L 11/28/17 Range/Units 15:35 WBC (3.98-10.04) K/mm3 RBC (3.98-5.22) M/mm3 Hgb (11.2-15.7) gm/L Hct (34.1-44.9) % MCV (79.4-94.8) fl MCH (25.6-32.2) pg MCHC (32.2-35.5) g/dl RDW Std Deviation (36.4-46.3) fL Plt Count (182-369) K/mm3 MPV (9.4-12.3) fl Neut % (Auto) (34.0-71.1) % Lymph % (Auto) (19.3-51.7) % [place] % (Auto) (4.7-12.5) % Eos % (Auto) (0.7-5.8) Baso % (Auto) (0.1-1.2) % Neut # (Auto) (1.56-6.13) K/mm3 Lymph # (Auto) (1.18-3.74) K/mm3 [place] # (Auto) (0.24-0.36) K/mm3 Eos # (Auto) (0.04-0.36) K/mm3 Baso # (Auto) (0.01-0.08) K/mm3 Manual Slide Review Sodium (136-145) mEq/L Potassium (3.5-5.1) mEq/L Chloride (98-107) mEq/L Carbon Dioxide (21-32) mEq/L Anion Gap (5-15) BUN (7-18) mg/dL Creatinine (0.55-1.02) mg/dL Est Cr Clr Drug Dosing mL/min Estimated GFR (MDRD) (>60) mL/min BUN/Creatinine Ratio (14-18) Glucose (83-115) mg/dL Calcium (8.5-10.1) mg/dL Total Bilirubin (0.2-1.0) mg/dL GGT (5-55) U/L AST (15-37) U/L ALT (14-59) U/L Alkaline Phosphatase (46-116) U/L Troponin I < 0.017 (0.00-0.056) ng/mL C-Reactive Protein (<1.0) mg/dL Total Protein (6.4-8.2) g/dl Albumin (3.4-5.0) g/dl Globulin gm/dL Albumin/Globulin Ratio (1-2) Lipase (73-393) U/L Meds: Medications Discontinued Medications Generic Name Dose Route Start Last Admin Trade Name Freq PRN Reason Stop Dose Admin Sodium Chloride 10 ml 11/28/17 12:50 11/28/17 12:45 Saline Flush FLUSH 10 ml ASDIRECTED PRN Administration Keep Vein Open - Radiology Interpretation Free Text/Narrative:: Limited abdominal ultrasound: Multiple real-time images of the upper right abdomen were obtained. Technologist's note: Difficult scan was suboptimal images Liver shows no discrete abnormality. Right kidney is somewhat small measuring 8.1 cm in length without hydronephrosis. Pancreas is incompletely seen. Visualized portions of the pancreas appear within normal limits. Gallbladder shows no shadowing gallstones. No gallbladder wall thickening is seen. Common bile duct not seen. Impression: 1. Small right kidney at 8.1 cm. 2. No additional abnormality is definitely seen on right upper quadrant abdominal ultrasound. Chest: Portable view of the chest was obtained. Comparison: Prior chest x-ray from 11/26/17. Parenchymal density is noted within the left lung base. This appears without significant change from previous exam. Lungs otherwise are clear. Heart size and mediastinum are stable. Bony structures are grossly intact. Impression: 1. Continuing parenchymal density within left lung base appears fairly similar to most recent study. 2. Portable chest x-ray is otherwise unremarkable. - Re-Assessments/Exams Free Text/Narrative Re-Assessment/Exam: 11/28/17 14:51 Checked and the patient. She is sleeping at this time. 11/28/17 15:46 Patient is awake at this time. Reviewed labs, ekg and imaging with the patient. Plan will be to repeat trop as reportedly the chest pain started at breakfast but she is not entirely certain. No chest pain now. Resting comfortably. 11/28/17 16:24 Repeat troponin is negative. Patient is sleeping again. Will discharge from [facility] with instructions to follow up with surgery and her primary care provider as recommended by hospitalist when she was just discharged yesterday. Discharge instructions as documented. Departure - Departure Time of Disposition: 16:14 Disposition: DC/Tfer to [facility] Reason for Transfer *Q: Other Condition: Fair Clinical Impression: Chest pain, atypical GERD (gastroesophageal reflux disease) Qualifiers: Esophagitis presence: esophagitis presence not specified Qualified Code(s): K21.9 - Gastro-esophageal reflux disease without esophagitis Instructions: Nonspecific Chest Pain, [id number], Gastroesophageal Reflux Disease, Adult, [id number] Referrals: Andres Sharma MD [Primary Care Provider] - Forms: ED Department Discharge Additional Instructions: Follow-up with your primary care provider within 7-10 days as instructed by hospital discharge instructions. Follow up with surgery for further evaluation of your anemia as instructed by hospital discharge instructions. Continue with your current plan of care. Please return to the ER if your symptoms change or worsen. - My Orders Last 24 Hours: My Active Orders 11/28/17 12:40 EKG 12 Lead [EKG Documentation Completion] [RC] STAT 11/28/17 12:50 Peripheral IV Insertion Adult [OM.PC] Routine 11/28/17 12:51 Peripheral IV Care [RC] . DIRECTED 11/28/17 12:52 Cardiac Monitoring [RC] . DIRECTED - Assessment/Plan Last 24 Hours: My Active Orders 11/28/17 12:40 EKG 12 Lead [EKG Documentation Completion] [RC] STAT 11/28/17 12:50 Peripheral IV Insertion Adult [OM.PC] Routine 11/28/17 12:51 Peripheral IV Care [RC] . DIRECTED 11/28/17 12:52 Cardiac Monitoring [RC] . DIRECTED
== END 2017-11-28 16:36 ==
LOC: JD.ED 12:30
DX: K21.9 Gastro-esophageal reflux disease without esophagitis (principal); I12.9 Hypertensive chronic kidney disease with stage 1 through stage 4 chronic kidney disease, or unspecified chronic kidney disease; N18.9 Chronic kidney disease, unspecified; Z91.041 Radiographic dye allergy status; Z79.899 Other long term (current) drug therapy
CPT/HCPCS: 36415; 71045; 76705; 80053; 82977; 83690; 84484; 85025; 86140; 93005; 99285; J7050; 93010; 99284

== ENCOUNTER 2018-12-29 17:51 | Emergency (ER) | payer MEDICARE, OTHER ==
[2018-12-29 18:04] VITALS: BP 131/59; PULSE 87
--- NOTE | 2018-12-29 18:17 | EDM.PDOC ---
ED HPI GENERAL MEDICAL PROBLEM - General Chief Complaint: ENT Problem Stated Complaint: NOSE BLEED Time Seen by Provider: 12/29/18 18:12 Source of Information: Reports: Patient History Limitations: Reports: No Limitations - History of Present Illness INITIAL COMMENTS - FREE TEXT/NARRATIVE: 80-year-old female from [facility] presents to the ED per ambulance with persistent bleeding from the left naris. The history suggests that started oozing from the left naris yesterday but quit overnight and started again this morning. Is bleeding fairly heavily for the last 3 hours coming out the right side of her naris and she recognizes that she swallowing some blood as well. No injury to the nose. The longterm where she resides is quite dry positive nosebleeds in the past. She is on aspirin daily but no other blood thinners. Denies any recent cold symptoms. Onset: Gradual Onset Date: 12/28/18 Duration: Day(s): (Really had some oozing from the left nares yesterday but stopped overnight and resumed again this morning in a trickling affect but heavily the last 3 hours.), Getting Worse Location: Reports: Face (The last 3 hours. Sided epistaxis.) Quality: Reports: Other Severity: Moderate (No pain) Improves with: Reports: Other (It has improved in the ED with a nose clamp.) Worsens with: Reports: None Context: Reports: Other (Spontaneous bleeding). Denies: Activity, Exercise, Lifting, Sick Contact, Trauma Associated Symptoms: Reports: No Other Symptoms, Other (Anxiety.) Treatments COOK FRUIT: Reports: Other (see below) (Left naris is been packed with 2 x 2 gauze.) - Related Data Allergies Allergy/AdvReac Type Severity Reaction Status Date / Time Iodinated Contrast Media Allergy unknown Verified 11/26/17 10:15 [Iodinated Contrast- Oral and IV Dye] contrast dye Allergy Cough Uncoded 11/26/17 05:48 Home Meds: Home Meds Gabapentin [Neurontin] 200 mg PO BID PRN 08/31/16 [History] Metoprolol Succinate 50 mg PO DAILY 08/31/16 [History] Mirabegron [Myrbetriq] 50 mg PO DAILY 08/31/16 [History] Multivitamin [Poly-Vitamin] 1 each PO DAILY 08/31/16 [History] Omeprazole 40 mg PO DAILY 08/31/16 [History] atorvaSTATin Calcium [Atorvastatin Calcium] 20 mg PO BEDTIME 08/31/16 [History] Nitroglycerin 0.4 mg SL ASDIRECTED PRN #12 tab.subl 09/01/16 [Rx] Furosemide [Lasix] 20 mg PO DAILY 10/26/17 [History] Isosorbide Mononitrate [Imdur] 30 mg PO DAILY 10/26/17 [History] Losartan [Cozaar] 50 mg PO DAILY 10/26/17 [History] Acetaminophen [Pain Relief] 650 mg PO Q4HR PRN 11/08/17 [History] Docusate Sodium [Colace] 100 mg PO BID PRN 11/08/17 [History] Lactulose 30 gm PO DAILY 11/08/17 [History] Polyethylene Glycol 3350 [Miralax] 17 gm PO DAILY 11/08/17 [History] Acetaminophen/HYDROcodone [[place] 325-5 MG] 5 - 325 mg PO Q6HR PRN 11/26/17 [ History] Albuterol Sulfate 2.5 mg IH Q4HR PRN 11/26/17 [History] Aspirin [Halfprin] 81 mg PO DAILY 11/26/17 [History] Benzonatate 100 mg PO Q4HR PRN 11/26/17 [History] Gabapentin [Neurontin] 200 mg PO BEDTIME 11/26/17 [History] Travoprost [Travatan Z] 1 drop EYEBOTH BEDTIME 11/26/17 [History] Triamcinolone Acetonide [Triamcinolone Acetonide 0.1% Oint] 1 applic TOP BID PRN 11/26/17 [History] Quin Vital [Preparation H] 1 each TP DAILY 11/26/17 [History] Iron Polysaccharides Complex [Ferrex 150] 150 mg PO DAILY #20 cap 11/27/17 [Rx] Past Medical History HEENT History: Reports: Cataract, Glaucoma, Impaired Vision Cardiovascular History: Reports: CAD, Heart Failure, High Cholesterol, Hypertension Other Cardiovascular History: cardiolyte stress test scheduled for 09/04/16 Respiratory History: Reports: Other (See Below) Other Respiratory History: Wears home oxygen Gastrointestinal History: Reports: GERD, Hiatal Hernia Genitourinary History: Reports: Chronic Renal Insuffiency, Urinary Incontinence , Other (See Below) 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: Musculoskeletal History: Reports: Arthritis, Back Pain, Chronic Psychiatric History: Reports: Anxiety, Depression, Other (See Below) Endocrine/Metabolic History: Reports: Obesity/BMI 30+ Hematologic History: Reports: Anemia, Iron Deficiency Other Dermatologic History: dry skin - Past Surgical History HEENT Surgical History: Reports: Cataract Surgery Social & Family History - Family History Family Medical History: Noncontributory - Tobacco Use Smoking Status *Q: Never Smoker - Caffeine Use Caffeine Use: Reports: Coffee Other Caffeine Use: 2 cups a day - Recreational Drug Use Recreational Drug Use: No - Living Situation & Occupation Living situation: Reports: , Extended Care Facility ([facility]) Occupation: Retired ED ROS ENT - Review of Systems Review Of Systems: See Below Constitutional: Reports: Malaise, Weakness, Fatigue, Decreased Appetite. Denies : Fever, Chills HEENT: Reports: Glasses (Mildly hard of hearing.), Hearing Loss Respiratory: Reports: Shortness of Breath. Denies: Wheezing, Pleuritic Chest Pain, Cough Cardiovascular: Reports: Blood Pressure Problem, Dyspnea on Exertion, Edema. Denies: Chest Pain, Claudication, Lightheadedness, Orthopnea Endocrine: Reports: Fatigue GI/Abdominal: Reports: Constipation : Reports: Frequency, Incontinence (Mostly urge incontinence.), Urgency, Other Musculoskeletal: Reports: Joint Pain (Frequent UTIs. Knees hips and low back neck and shoulders.) Skin: Reports: No Symptoms Neurological: Reports: No Symptoms Psychiatric: Reports: Anxiety Hematologic/Lymphatic: Reports: Anemia, Other (History of iron deficiency anemia.) Immunologic: Reports: No Symptoms ED EXAM, ENT - Physical Exam Exam: See Below Exam Limited By: No Limitations General Appearance: Alert, Anxious, Moderate Distress, Other (Has a nasal clamp in place.) Eye Exam: Bilateral Eye: Normal Inspection (Mild peripheral pallor.) Nose: Other (Examination reveals blood in the floor of the right naris. I see no evidence of active bleeding from the anterior nasal mucosa on the right side. There is very active bleeding coming from the anterior nasal septum on the left side. We had her blow out the clots from the left side. His minimal blood clot in the posterior left nasopharynx.). No: Nasal Deformity, Nasal Tenderness Mouth/Throat: Other (Mild blood clot left posterior oropharynx just) Head: Atraumatic ( inferior to the soft palate.), Normocephalic Neck: Carotid Bruit, Limited Range of Motion. No: Full Range of Motion, Lymphadenopathy (L), Lymphadenopathy (R) Respiratory/Chest: Normal Breath Sounds, Respiratory Distress (Mild tachypnea mostly due to anxiety.), Decreased Breath Sounds (Sounds are mildly diminished to both lung thompson.). No: Rhonchi, Wheezing Cardiovascular: Normal Peripheral Pulses, Regular Rate, Rhythm, No Edema, No Gallop, No Murmur, No Rub ED ENT PROCEDURES - Epistaxis Procedure Indication: Epistaxis, Uncontrolled Recent anticoagulants/antiplatlets: No Uncontrolled HTN: No Recent septal/nasal surgery: No Site of bleeding: Left Nare, Anterior Clearing of clots: Patient Blew Nose Anterior Packing: Petrolatum Guaze Strip Course - Vital Signs Last Recorded V/S: Last Vital Signs Temp 37.3 C 12/29/18 18:03 Pulse 87 12/29/18 18:03 Resp 20 12/29/18 18:03 BP 131/59 L 12/29/18 18:03 Pulse Ox 95 12/29/18 18:03 - Orders/Labs/Meds Labs: Laboratory Tests 12/29/18 Range/Units 18:18 Urine Color Yellow (Yellow) Urine Appearance Clear (Clear) Urine pH 6.0 (5.0-8.0) Ur Specific [place] 1.025 (1.005-1.030) Urine Protein Negative (Negative) Urine Glucose (UA) Negative (Negative) Urine Ketones Negative (Negative) Urine Occult Blood Negative (Negative) Urine Nitrite Negative (Negative) Urine Bilirubin Negative (Negative) Urine Urobilinogen 0.2 (0.2-1.0) Ur Leukocyte Esterase Negative (Negative) Urine RBC 0-5 (0-5) /hpf Urine WBC 0-5 (0-5) /hpf Ur Squamous Epith Cells 0-5 (0-5) /hpf Urine Bacteria Few (FEW) /hpf Hyaline Casts 0-5 (0-5) /lpf Urine Mucus Few (FEW) /hpf - Radiology Interpretation Free Text/Narrative:: Evaluation in the emergency room in regards to persistent bleeding from the left side of your nose today and probably yesterday as well. Emanation revealed blood in the right naris had come from the left side. There are anterior left nasal septum is actively bleeding from several small areas. It was therefore packed with petrolatum gauze packing which is to remain in the nose for the next 48 hours. Suggest taking it out on SundayJanuary 01. That way if it starts bleeding again she can be brought to the hospital. After this she is to have Polysporin ointment applied to both sides of the nasal septum every night at bedtime for one week then twice weekly Sunday and Sunday nights for the remainder the winter to prevent further nosebleeds. Ideally cool mist medication in her sleeping quarters would be beneficial. Return to the ED if any further bleeding occurs from the left naris. - Re-Assessments/Exams Free Text/Narrative Re-Assessment/Exam: 12/29/18 18:53 on recheck there is no further active bleeding. The posterior lateral gauzes to be left in until Sunday as discussed above. It is held in place by a piece of tape across the nose. Of note the catheter urine specimen is clear of any infection. Therefore it is her controlling it is soaked with urine due to incontinence that is causing the odor of a urinary tract infection. Departure - Departure Time of Disposition: 18:54 Disposition: Home, Self-Care 01 Condition: Fair Clinical Impression: Anterior epistaxis Urinary incontinence Qualifiers: Urinary Incontinence type: continuous leakage Qualified Code(s): N39.45 - Continuous leakage - Discharge Information *PRESCRIPTION DRUG MONITORING PROGRAM REVIEWED*: Not Applicable *COPY OF PRESCRIPTION DRUG MONITORING REPORT IN PATIENT LINDA: Not Applicable Instructions: Nosebleed, Adult Referrals: Andres Sharma MD [Primary Care Provider] - Forms: ED Department Discharge Additional Instructions: Evaluation the emergency room today in regards to persistent bleeding from the left anterior nasal septum. No trauma. The lining of the nose is very thin due to age. Specks of blood vessels on the surface very prominent and prone to active bleeding for no good reason. They simply burst. The left naris was packed with Vaseline petrolatum gauze. This provided pressure on the bleeding site and got it to stop. The packing is to remain in place until the morning of January 01 at which time he could be removed. If there is any further bleeding after this she is to return to the ED. After this she needs Polysporin ointment by way of a Q-tip placed and each side of the nose at bedtime for one week and then every Sunday and Sunday night for the remainder the winter months to prevent further bleeds from occurring. Ideally, Mr. deshpande and her sleeping quarters would be beneficial as well return to the ED if any further bleeding occurs.
== END 2018-12-29 19:10 | disposition home or self-care (01) ==
LOC: JD.ED 17:51
DX: R04.0 Epistaxis (principal); I25.10 Atherosclerotic heart disease of native coronary artery without angina pectoris; I13.0 Hypertensive heart and chronic kidney disease with heart failure and stage 1 through stage 4 chronic kidney disease, or unspecified chronic kidney disease; N18.9 Chronic kidney disease, unspecified; I50.9 Heart failure, unspecified; E78.00 Pure hypercholesterolemia, unspecified; E66.9 Obesity, unspecified; Z91.041 Radiographic dye allergy status; K21.9 Gastro-esophageal reflux disease without esophagitis; Z68.29 Body mass index [BMI] 29.0-29.9, adult; Z79.899 Other long term (current) drug therapy; Z79.82 Long term (current) use of aspirin
CPT/HCPCS: 30901; 30903; 81001; 99282; 99284-25